=== PATIENT | female | born 1945 | race Caucasian/White ===

== ENCOUNTER 2016-06-19 11:18 | Inpatient (IN) | payer MEDICARE, OTHER ==
[2016-06-19] MEDS ORDERED: LORazepam 2 MG/ML SYRINGE IV STA ×2 (11:34→13:17)
--- NOTE | 2016-06-19 11:37 | ED ---
General Adult HPI - General Chief complaint: Shortness of Breath Stated complaint: high pulse Time Seen by Provider: 06/19/16 11:25 Source: patient, RN notes reviewed Mode of arrival: ambulatory Limitations: no limitations - History of Present Illness Initial comments: This is a 71-year-old female presents emergency Department with complaint of difficult to breathing. Patient states this is been ongoing for approximately for 5 days. Patient states she has a history of COPD. Patient states difficulty breathing is gotten worse. She went to see Dr. Chen today. Patient states he central here because her heart was racing. Patient states she has not had any recent fever chills or cough. Patient denies any chest pain. Patient does states she can tell her heart is racing. Patient denies any abdominal pain patient denies nausea vomiting or diarrhea. Patient denies any headache patient denies numbness weakness. Patient denies any dizziness lightheadedness or near syncopal episode. Patient denies any recent injury or trauma. Patient denies increased edema in her leg she states it's normal. - Related Data Home Medications Medication Instructions Recorded Confirmed ALPRAZolam [Alprazolam] 0.25 mg PO DAILY PRN 06/19/16 06/19/16 Citalopram Hydrobromide 40 mg PO DAILY 06/19/16 06/19/16 [Citalopram HBr] Esomeprazole Magnesium [NexIUM] 40 mg PO DAILY 06/19/16 06/19/16 HYDROcodone/APAP 10-325MG [Buckley 1 tab PO Q4HR PRN 06/19/16 06/19/16 10-325] glipiZIDE [Glucotrol] 5 mg PO AC-BID 06/19/16 06/19/16 Allergies Allergy/AdvReac Type Severity Reaction Status Date / Time No Known Allergies Allergy Verified 06/19/16 11:26 Review of Systems ROS Statement: Those systems with pertinent positive or pertinent negative responses have been documented in the HPI. ROS Other: All systems not noted in ROS Statement are negative. Past Medical History Past Medical History: Diabetes Mellitus History of Any Multi-Drug Resistant Organisms: None Reported Past Surgical History: Appendectomy, Section, Cholecystectomy, Joint Replacement Past Psychological History: Anxiety, Depression Smoking Status: Current every day smoker Past Alcohol Use History: None Reported Past Drug Use History: None Reported General Exam - General Exam Comments Initial Comments: GENERAL: Patient is well-developed and well-nourished. Patient is nontoxic and well- hydrated and is in mild distress. ENT: Neck is soft and supple. No significant lymphadenopathy is noted. Oropharynx is clear. Moist mucous membranes. Neck has full range of motion without eliciting any pain. EYES: The sclera were anicteric and conjunctiva were pink and moist. Extraocular movements were intact and pupils were equal round and reactive to light. Eyelids were unremarkable. PULMONARY: Patient has diffuse wheezing. CARDIOVASCULAR: Patient is tachycardic at about 150 beats a minute ABDOMEN: Soft and nontender with normal bowel sounds. No palpable organomegaly was noted. There is no palpable pulsatile mass. SKIN: Skin is clear with no lesions or rashes and otherwise unremarkable. NEUROLOGIC: Patient is alert and oriented x3. Cranial nerves II through XII are grossly intact. Motor and sensory are also intact. Normal speech, volume and content. Symmetrical smile. Cerebellar exam grossly intact. MUSCULOSKELETAL: Normal extremities with adequate strength and full range of motion. No lower extremity swelling or edema. No calf tenderness. LYMPHATICS: No significant lymphadenopathy is noted PSYCHIATRIC: Normal psychiatric evaluation. Normal interpersonal interactions appears functionally intact in deals appropriately with others. Moderate anxiety Limitations: no limitations Course Vital Signs 06/19/16 06/19/16 06/19/16 11:21 12:00 12:22 Temperature 97.8 F Pulse Rate 153 H 137 H Pulse Rate [ 150 H Open Cut Examiner ] Respiratory 22 22 Rate Blood Pressure 115/82 118/76 O2 Sat by Pulse 93 L 94 L Oximetry 06/19/16 06/19/16 13:10 14:00 Temperature Pulse Rate 146 H 143 H Pulse Rate [ Open Cut Examiner ] Respiratory 24 24 Rate Blood Pressure 124/67 111/60 O2 Sat by Pulse 96 91 L Oximetry Medical Decision Making - Medical Decision Making EKG shows atrial for ablation with rapid ventricular response at 152 bpm QRS is 82 QT interval is 262 QTC is 416. Patient's EKG shows no ST segment elevation or depression no T-wave abdomen is noted. Patient does not have a history of A. fib that we know of and I have an EKG from previous and it does not show A. fib. Patient refused a chest x-ray because her d-dimer was elevated and she still continued to have difficulty breathing I ordered a CAT scan of her chest to rule out PE. CT of the chest showed no PE but did show congestive heart failure. I gave the patient Lasix for congestive heart failure and continue the Cardizem running for the A. fib. I spoke with Dr. Escalera she agreed to admit the patient I consult the cardiology pulmonary and continue Lasix on the floor. - Lab Data Result diagrams: 06/19/16 11:48 06/19/16 11:48 Lab Results 06/19/16 06/19/16 06/19/16 Range/Units 11:34 11:48 11:48 WBC 9.4 (3.8-10.6) k/uL RBC 4.46 (3.80-5.40) m/uL Hgb 11.9 (11.4-16.0) gm/dL Hct 38.8 (34.0-46.0) % MCV 87.1 (80.0-100.0) fL MCH 26.7 (25.0-35.0) pg MCHC 30.7 L (31.0-37.0) g/dL RDW 16.0 H (11.5-15.5) % Plt Count 211 (150-450) k/uL Neutrophils % 74 % Lymphocytes % 16 % Monocytes % 6 % Eosinophils % 1 % Basophils % 1 % Neutrophils # 7.0 (1.3-7.7) k/uL Lymphocytes # 1.5 (1.0-4.8) k/uL Monocytes # 0.6 (0-1.0) k/uL Eosinophils # 0.1 (0-0.7) k/uL Basophils # 0.1 (0-0.2) k/uL Hypochromasia Moderate PT (9.0-12.0) sec INR (<1.1) APTT (22.0-30.0) sec D-Dimer (<0.60) mg/L FEU Sodium (137-145) mmol/L Potassium (3.5-5.1) mmol/L Chloride (98-107) mmol/L Carbon Dioxide (22-30) mmol/L Anion Gap mmol/L BUN (7-17) mg/dL Creatinine (0.52-1.04) mg/dL Est GFR (MDRD) Af Amer (>60 ml/min/1.73 sqM) Est GFR (MDRD) Non-Af (>60 ml/min/1.73 sqM) Glucose (74-99) mg/dL POC Glucose (mg/dL) (75-99) mg/dL POC Glu Delivery And Mail Sorter ID Calcium (8.4-10.2) mg/dL Magnesium (1.6-2.3) mg/dL Total Bilirubin (0.2-1.3) mg/dL AST (14-36) U/L ALT (9-52) U/L Alkaline Phosphatase (38-126) U/L Total Creatine Kinase 33 (30-135) U/L CK-MB (CK-2) 0.5 (0.0-2.4) ng/mL CK-MB (CK-2) Rel Index 1.5 Troponin I <0.012 (0.000-0.034) ng/mL NT-Pro-B Natriuret Pep 3600 pg/mL Total Protein (6.3-8.2) g/dL Albumin (3.5-5.0) g/dL 06/19/16 06/19/16 06/19/16 Range/Units 11:48 11:48 12:10 WBC (3.8-10.6) k/uL RBC (3.80-5.40) m/uL Hgb (11.4-16.0) gm/dL Hct (34.0-46.0) % MCV (80.0-100.0) fL MCH (25.0-35.0) pg MCHC (31.0-37.0) g/dL RDW (11.5-15.5) % Plt Count (150-450) k/uL Neutrophils % % Lymphocytes % % Monocytes % % Eosinophils % % Basophils % % Neutrophils # (1.3-7.7) k/uL Lymphocytes # (1.0-4.8) k/uL Monocytes # (0-1.0) k/uL Eosinophils # (0-0.7) k/uL Basophils # (0-0.2) k/uL Hypochromasia PT 11.2 (9.0-12.0) sec INR 1.1 (<1.1) APTT 22.4 (22.0-30.0) sec D-Dimer 1.40 H (<0.60) mg/L FEU Sodium 141 (137-145) mmol/L Potassium 4.6 (3.5-5.1) mmol/L Chloride 107 (98-107) mmol/L Carbon Dioxide 23 (22-30) mmol/L Anion Gap 11 mmol/L BUN 11 (7-17) mg/dL Creatinine 0.82 (0.52-1.04) mg/dL Est GFR (MDRD) Af Amer >60 (>60 ml/min/1.73 sqM) Est GFR (MDRD) Non-Af >60 (>60 ml/min/1.73 sqM) Glucose 88 (74-99) mg/dL POC Glucose (mg/dL) 101 H (75-99) mg/dL POC Glu Delivery And Mail Sorter ID Rin Proctor Calcium 8.8 (8.4-10.2) mg/dL Magnesium 2.2 (1.6-2.3) mg/dL Total Bilirubin 0.9 (0.2-1.3) mg/dL AST 22 (14-36) U/L ALT 21 (9-52) U/L Alkaline Phosphatase 72 (38-126) U/L Total Creatine Kinase (30-135) U/L CK-MB (CK-2) (0.0-2.4) ng/mL CK-MB (CK-2) Rel Index Troponin I (0.000-0.034) ng/mL NT-Pro-B Natriuret Pep pg/mL Total Protein 7.4 (6.3-8.2) g/dL Albumin 3.9 (3.5-5.0) g/dL Critical Care Time Critical Care Time: Yes Total Critical Care Time: 35 Disposition Clinical Impression: Acute pulmonary edema, Atrial fibrillation with RVR, COPD (chronic obstructive pulmonary disease) Disposition: ADMITTED IP TO THIS [facility] Time of Disposition: 14:34
[2016-06-19] MEDS ORDERED: DILTIAZEM 5 MG/ML 5 ML VIAL IVP STA ×3 (11:51→16:29)
[2016-06-19 12:06] LABS: Basophils # (A) 0.1 k/uL (0-0.2); Basophils % (A) 1 %; CH 26.6; CHCM 30.8; Eosinophils # (A) 0.1 k/uL (0-0.7); Eosinophils % (A) 1 %; HCT 38.8 % (34.0-46.0); HGB 11.9 gm/dL (11.4-16.0); Hypochromasia Moderate; Luc # (Auto) 0.14; Luc % (Auto) 2; Lymphocytes # (A) 1.5 k/uL (1.0-4.8); Lymphocytes % (A) 16 %; MCH 26.7 pg (25.0-35.0); MCHC 30.7 g/dL (31.0-37.0); MCV 87.1 fL (80.0-100.0); Mean Platelet Volume 7.8; Monocytes # (A) 0.6 k/uL (0-1.0); Monocytes % (A) 6 %; Neutrophils % (A) 74 %; RBC 4.46 m/uL (3.80-5.40); WBC 9.4 k/uL (3.8-10.6)
[2016-06-19 12:10] LABS: ALT 21 U/L (9-52); AST 22 U/L (14-36); Alkaline Phosphatase 72 U/L (38-126); Anion Gap 11 mmol/L; Blood Urea Nitrogen 11 mg/dL (7-17); Calcium 8.8 mg/dL (8.4-10.2); Carbon Dioxide 23 mmol/L (22-30); Chloride 107 mmol/L (98-107); Glucose 88 mg/dL (74-99); Magnesium 2.2 mg/dL (1.6-2.3); Non-African American GFR(MDRD) >60 (>60 ml/min/1.73 sqM); Potassium 4.6 mmol/L (3.5-5.1); Sodium 141 mmol/L (137-145); Total Bilirubin 0.9 mg/dL (0.2-1.3); Total Protein 7.4 g/dL (6.3-8.2)
[2016-06-19 12:12] LABS: Glucose,Whole Blood 101 mg/dL (75-99)
[2016-06-19] MEDS: DILTIAZEM 125 MG in SODIUM CHLORIDE 0.9% 100 ML IV ONE (12:12)
[2016-06-19 12:36] LABS: Creatine Kinase MB 0.5 ng/mL (0.0-2.4); Troponin I <0.012 ng/mL (0.000-0.034)
[2016-06-19 12:38] LABS: Creatine Kinase 33 U/L (30-135)
[2016-06-19 12:44] LABS: INR 1.1 (<1.1); Partial Thromboplastin Time 22.4 sec (22.0-30.0); Prothrombin Time 11.2 sec (9.0-12.0)
[2016-06-19] MEDS ORDERED: methylPREDNISolone SOD SUCCI 125 MG/2 ML VIAL IV STA (12:52)
[2016-06-19] MEDS ORDERED: RX INFO: IV CONTRAST WAS GIVEN 1 EACH MISC MISCELLANE PRN (13:12)
[2016-06-19] MEDS ORDERED: IPRATROPIUM-ALBUTEROL 3 ML NEB INHALATION STA ×2 (14:07→17:09)
--- NOTE | 2016-06-19 14:09 | CT ---
EXAMINATION TYPE: CT chest angio for PE DATE OF EXAM: 06/19/2016 2:04 PM COMPARISON: NONE HISTORY: Poor historian, shortness of breath, high pulse rate CT DLP: 554.50 mGycm CONTRAST: CT chest with contrast and 3D reconstruction with MIP imaging is performed with IV Contrast, patient injected with 100 mL of Omnipaque 350. Contrast-enhanced CT of the chest was performed through the course of the pulmonary arteries with bea g and mediastinal window settings submitted. 3D reconstruction with MIP imaging was also performed. PULMONARY ARTERIES: The pulmonary arteries and their major tributaries are patent. I do not see maxim dence for sizable filling defect to suggest pulmonary embolic process. LUNGS: There are scattered groundglass infiltrates with pulmonary venous congestion with small bilate ral pleural effusions. There is also cardiomegaly. Findings are felt to reflect congestive failure. MEDIASTINUM: Thoracic aorta is of normal caliber . Pericardial effusion with transverse measurement of 1.4 cm. No evidence for mediastinal mass. No mediastinal lymph nodes greater than 1cm. HILAR STRUCTURES: No evidence for mass. No hilar lymph nodes greater than 1 cm. UPPER ABDOMEN: Small hiatal hernia noted. IMPRESSION: 1. No evidence for Pulmonary embolism at this time. 2. Findings felt to reflect congestive failure.
[2016-06-19] MEDS ORDERED: FUROSEMIDE 10 MG/ML 2 ML VIAL IV STA (14:33)
[2016-06-19] MEDS ORDERED: HEPARIN SODIUM,PORCINE 5,000 UNIT/ML 1 ML VIAL IV ONE (14:35)
[2016-06-19] MEDS: HEPARIN SODIUM,PORCINE/D5W PMX 25,000 UNIT in DEXTROSE/WATER 1 500ML.BAG IV SCH (15:32)
--- NOTE | 2016-06-19 17:10 | ED ---
Medical Decision Making - Medical Decision Making The patient was still developing difficulty with breathing in spite of the initial updrafts and Lasix given. She desaturates quickly she will be placed on BiPAP and be given another DuoNeb treatment. - Lab Data Result diagrams: 06/19/16 11:48 06/19/16 11:48 Lab Results 06/19/16 06/19/16 06/19/16 Range/Units 11:34 11:48 11:48 WBC 9.4 (3.8-10.6) k/uL RBC 4.46 (3.80-5.40) m/uL Hgb 11.9 (11.4-16.0) gm/dL Hct 38.8 (34.0-46.0) % MCV 87.1 (80.0-100.0) fL MCH 26.7 (25.0-35.0) pg MCHC 30.7 L (31.0-37.0) g/dL RDW 16.0 H (11.5-15.5) % Plt Count 211 (150-450) k/uL Neutrophils % 74 % Lymphocytes % 16 % Monocytes % 6 % Eosinophils % 1 % Basophils % 1 % Neutrophils # 7.0 (1.3-7.7) k/uL Lymphocytes # 1.5 (1.0-4.8) k/uL Monocytes # 0.6 (0-1.0) k/uL Eosinophils # 0.1 (0-0.7) k/uL Basophils # 0.1 (0-0.2) k/uL Hypochromasia Moderate PT (9.0-12.0) sec INR (<1.1) APTT (22.0-30.0) sec D-Dimer (<0.60) mg/L FEU Sodium (137-145) mmol/L Potassium (3.5-5.1) mmol/L Chloride (98-107) mmol/L Carbon Dioxide (22-30) mmol/L Anion Gap mmol/L BUN (7-17) mg/dL Creatinine (0.52-1.04) mg/dL Est GFR (MDRD) Af Amer (>60 ml/min/1.73 sqM) Est GFR (MDRD) Non-Af (>60 ml/min/1.73 sqM) Glucose (74-99) mg/dL POC Glucose (mg/dL) (75-99) mg/dL POC Glu Critical Care Physician ID Calcium (8.4-10.2) mg/dL Magnesium (1.6-2.3) mg/dL Total Bilirubin (0.2-1.3) mg/dL AST (14-36) U/L ALT (9-52) U/L Alkaline Phosphatase (38-126) U/L Total Creatine Kinase 33 (30-135) U/L CK-MB (CK-2) 0.5 (0.0-2.4) ng/mL CK-MB (CK-2) Rel Index 1.5 Troponin I <0.012 (0.000-0.034) ng/mL NT-Pro-B Natriuret Pep 3600 pg/mL Total Protein (6.3-8.2) g/dL Albumin (3.5-5.0) g/dL 06/19/16 06/19/16 06/19/16 Range/Units 11:48 11:48 12:10 WBC (3.8-10.6) k/uL RBC (3.80-5.40) m/uL Hgb (11.4-16.0) gm/dL Hct (34.0-46.0) % MCV (80.0-100.0) fL MCH (25.0-35.0) pg MCHC (31.0-37.0) g/dL RDW (11.5-15.5) % Plt Count (150-450) k/uL Neutrophils % % Lymphocytes % % Monocytes % % Eosinophils % % Basophils % % Neutrophils # (1.3-7.7) k/uL Lymphocytes # (1.0-4.8) k/uL Monocytes # (0-1.0) k/uL Eosinophils # (0-0.7) k/uL Basophils # (0-0.2) k/uL Hypochromasia PT 11.2 (9.0-12.0) sec INR 1.1 (<1.1) APTT 22.4 (22.0-30.0) sec D-Dimer 1.40 H (<0.60) mg/L FEU Sodium 141 (137-145) mmol/L Potassium 4.6 (3.5-5.1) mmol/L Chloride 107 (98-107) mmol/L Carbon Dioxide 23 (22-30) mmol/L Anion Gap 11 mmol/L BUN 11 (7-17) mg/dL Creatinine 0.82 (0.52-1.04) mg/dL Est GFR (MDRD) Af Amer >60 (>60 ml/min/1.73 sqM) Est GFR (MDRD) Non-Af >60 (>60 ml/min/1.73 sqM) Glucose 88 (74-99) mg/dL POC Glucose (mg/dL) 101 H (75-99) mg/dL POC Glu Critical Care Physician ID Rin Proctor Calcium 8.8 (8.4-10.2) mg/dL Magnesium 2.2 (1.6-2.3) mg/dL Total Bilirubin 0.9 (0.2-1.3) mg/dL AST 22 (14-36) U/L ALT 21 (9-52) U/L Alkaline Phosphatase 72 (38-126) U/L Total Creatine Kinase (30-135) U/L CK-MB (CK-2) (0.0-2.4) ng/mL CK-MB (CK-2) Rel Index Troponin I (0.000-0.034) ng/mL NT-Pro-B Natriuret Pep pg/mL Total Protein 7.4 (6.3-8.2) g/dL Albumin 3.9 (3.5-5.0) g/dL Disposition Clinical Impression: Acute pulmonary edema, Atrial fibrillation with RVR, COPD (chronic obstructive pulmonary disease) Disposition: ADMITTED IP TO THIS HOSP
[2016-06-19] MEDS ORDERED: HYDROcodone/APAP 10-325MG 1 EACH TAB PO ONE (18:02)
[2016-06-19] MEDS: methylPREDNISolone SOD SUCCI 125 MG/2 ML VIAL IV SCH (18:27)
--- NOTE | 2016-06-19 18:45 | P.HPIM ---
History of Present Illness H&P Date: 06/19/16 Chief Complaint: Shortness of breath, wheezing This is a pleasant 71-year-old lady patient of Dr. Raphael and Dr. Chen. She has underlying history off CAD type 2 diabetes mellitus, hypertension, COPD, current heavy tobacco use, chronic rhonchi place, Bateman's esophagus admitted emergency room secondary to increasing difficulty despite initial treatments at home, she was sent in from Dr. Chen's office secondary to increasing shortness of breath and difficulty in breathing, patient has had problems for about one week, she has increasingly shortness of breath breathing fatigue , conversational dyspnea, palpitations and fast heartbeat. Patient denies any recent fever or chills, patient denies any lower extremity edema or leg pain, patient denies any syncopal event or focal neurologic deficits. Patient denies any falls or recent trauma In the emergency room she was found to be in atrial fibrillation new onset, rapid ventricular rate, heart rate in the 140s, she was very bronchospastic and hypoxemic, she required nebulized treatments without relief, they have started BiPAP treatments and was transferred to ICU. O2 sats at 80%, CTA of the chest was done as a d-dimer was elevated, CT ruled out pulmonary emboli it did show congestive heart failure, additional findings on CAT scan showed scattered groundglass infiltrates with small bilateral pleural effusion she was started on IV Cardizem for atrial fibrillation with IV anticoagulation and IV Lasix. Consult was made with cardiology and Dr. Chen pulmonary medicine and boot turner. Review of Systems Constitutional: Reports as per HPI, Reports daytime sleepiness, Reports fatigue , Reports lethargy, Reports poor appetite, Denies anorexia, Denies chills, Denies chronic headaches, Denies chronic pain, Denies fever, Denies malaise, Denies night sweats, Denies sweats, Denies weakness, Denies weight gain, Denies weight loss Ears, nose, mouth and throat: Reports as per HPI, Denies ant. neck pain, Denies bleeding gums, Denies dental pain, Denies dysphagia, Denies epistaxis, Denies headache, Denies hoarseness, Denies mouth pain, Denies nasal congestion, Denies nasal discharge, Denies neck fullness/pressure, Denies neck lump, Denies nose pain, Denies odynophagia, Denies post-nasal drip, Denies sinus pain, Denies sinus pressure, Denies swelling in mouth, Denies swelling in throat, Denies sore throat, Denies vertigo, Denies voice changes Cardiovascular: Reports as per HPI, Reports decreased exercise tolerance, Reports dyspnea on exertion, Reports edema, Reports irregular heart beat, Reports lightheadedness, Reports paroxysmal nocturnal dyspnea, Reports rapid heart beat, Reports shortness of breath, Denies chest pain, Denies claudication , Denies high blood pressure, Denies leg edema, Denies orthopnea, Denies palpitations, Denies phlebitis, Denies syncope Respiratory: Reports as per HPI, Reports cough, Reports cough with sputum, Reports respiratory infections, Reports wheezing, Denies congestion, Denies dyspnea, Denies excessive sputum, Denies hemoptysis, Denies home oxygen, Denies pain, Denies pain on inspiration, Denies pleurisy, Denies sleep apnea, Denies snoring Gastrointestinal: Reports as per HPI, Denies abdominal pain, Denies belching, Denies bloating, Denies BRBPR, Denies change in bowel habits, Denies coffee ground emesis, Denies constipation, Denies diarrhea, Denies dyspepsia, Denies early satiety, Denies excessive gas, Denies heartburn, Denies hematemesis, Denies hematochezia, Denies indigestion, Denies jaundice, Denies lactose intolerance, Denies loss of appetite, Denies melena, Denies nausea, Denies vomiting Genitourinary: Reports as per HPI, Denies abnormal vaginal bleeding, Denies decreased libido, Denies difficulty conceiving, Denies difficulty voiding, Denies dysmenorrhea, Denies dyspareunia, Denies dysuria, Denies flank pain, Denies genital sores, Denies hematuria, Denies hot flashes, Denies incomplete emptying, Denies kidney stones, Denies menorrhagia, Denies mixed incontinence, Denies nocturia, Denies pelvic pain, Denies post void dribbling, Denies , Denies prolapse symptoms, Denies stress incontinence, Denies urge incontinence , Denies urgency, Denies urinary frequency, Denies vaginal discharge, Denies vaginal dryness, Denies vaginal itching, Denies vaginal odor Menstruation: Reports as per HPI, Reports postmenopausal, Denies amenorrhea, Denies amenorrhea on BC, Denies currently menstrual, Denies cycle < 21 days, Denies cycle > 35 days, Denies cycle variable, Denies menses 1-7 days, Denies menses 8 or > days, Denies menses variable, Denies period heavy, Denies period light, Denies period normal, Denies period spotting, Denies post hysterectomy, Denies premenarcheal Musculoskeletal: Reports as per HPI Integumentary: Reports as per HPI, Denies acne, Denies boils, Denies brittle nails, Denies change in hair/nails, Denies color changes, Denies darkening of skin, Denies depigmentation, Denies dryness, Denies foot/leg ulcers, Denies growths, Denies hirsutism, Denies lesions, Denies onychomycosis, Denies pruritus , Denies rash, Denies sores, Denies striae, Denies unusual bruising, Denies wounds Neurological: Reports as per HPI, Reports change in mentation, Reports hearing difficulties, Reports weakness, Denies aphasia, Denies ataxia, Denies balance difficulties, Denies burning pain, Denies change in smell/taste, Denies change in speech, Denies confusion, Denies convulsions, Denies double vision, Denies gait dysfunction, Denies head injury, Denies headaches, Denies lack of coordination, Denies loss of vision, Denies memory loss, Denies migraines, Denies motor disturbance, Denies numbness, Denies paralysis, Denies paresthesias , Denies seizures, Denies sensory deficit, Denies spasticity, Denies syncope, Denies tic, Denies tingling, Denies transient paralysis, Denies tremors, Denies vertigo, Denies visual changes Psychiatric: Reports as per HPI, Denies anhedonia, Denies anxiety, Denies anxiety attacks, Denies change in appetite, Denies change in libido, Denies change in sleep habits, Denies confusion, Denies depression, Denies difficulty concentrating, Denies disorientation, Denies hallucinations, Denies hopelessness , Denies hypersomnia, Denies insomnia, Denies irritability, Denies memory loss, Denies mood swings, Denies paranoia, Denies sadness/tearfulness, Denies sleep disturbances, Denies suicidal ideation Endocrine: Reports as per HPI, Denies cold intolerance, Denies deepening of the voice, Denies excessive sweating, Denies excessive thirst, Denies fatigue, Denies flushing, Denies heat intolerance, Denies high blood sugars, Denies increase in ring/shoe/hat size, Denies low blood sugars, Denies nocturia, Denies palpitations, Denies polydipsia, Denies polyphagia, Denies polyuria, Denies proptosis, Denies recent glucocorticoid use, Denies thyroid mass, Denies weight change Hematologic/Lymphatic: Reports as per HPI, Denies easy bleeding, Denies easy bruising, Denies lymphadenopathy, Denies lymphedema, Denies thrombophilia Allergic/Immunologic: Reports as per HPI, Denies allergic rhinitis, Denies anaphylaxis, Denies angioedema, Denies gluten intolerance, Denies persistent infections, Denies seasonal allergies, Denies urticaria, Denies wheezing Past Medical History Past Medical History: COPD, Diabetes Mellitus, Osteoarthritis (OA) Additional Past Medical History / Comment(s): NIDDM type II, back pain, migraines, severe bilateral knee pain, hiatal hernia, bateman's esophagus, sinus problems, bilateral tinnitis-resolved. Restless leg syndrome carotid stenosis osteoporosis closely fracture hypertension menopause History of Any Multi-Drug Resistant Organisms: None Reported Past Surgical History: Adenoidectomy, Appendectomy, Section, Cholecystectomy, Joint Replacement, Tonsillectomy Additional Past Surgical History / Comment(s): Total bilateral knee arthroplasty , EGD/colonoscopy, D&C, bronchoscopy. appendectomy Past Anesthesia/Blood Transfusion Reactions: No Reported Reaction Past Psychological History: Anxiety, Depression Additional Psychological History / Comment(s): Pt resides with her [employer]. She uses a cane at times. She no longer drives-family takes her to [employer]. She has a nebulizer and glucose monitor. Smoking Status: Current every day smoker Past Alcohol Use History: None Reported Additional Past Alcohol Use History / Comment(s): Pt startes smoking at the age of 10 yrs. Past Drug Use History: None Reported - Past Family History Father Family Medical History: Unable to Obtain Additional Family Medical History / Comment(s): Uncertain but thinks he had a OK Mother Family Medical History: Cancer (Lung) Additional Family Medical History / Comment(s): Mother had lung cancer. She was a smoker. Brother(s) Family Medical History: Unable to Obtain (No brothers) Sister(s) Family Medical History: No Reported History (Healthy 1 sister) Daughter(s) Family Medical History: Seizure Disorder Medications and Allergies Home Medications Medication Instructions Recorded Confirmed Type ALPRAZolam [Alprazolam] 0.25 mg PO DAILY PRN 06/19/16 06/19/16 History Citalopram Hydrobromide 40 mg PO DAILY 06/19/16 06/19/16 History [Citalopram HBr] Esomeprazole Magnesium [NexIUM] 40 mg PO DAILY 06/19/16 06/19/16 History HYDROcodone/APAP 10-325MG [Warner 1 tab PO Q4HR PRN 06/19/16 06/19/16 History 10-325] glipiZIDE [Glucotrol] 5 mg PO AC-BID 06/19/16 06/19/16 History Allergies Allergy/AdvReac Type Severity Reaction Status Date / Time No Known Allergies Allergy Verified 06/19/16 11:26 Physical Exam Vitals: Vital Signs Pulse Resp BP Pulse Ox 06/19/16 17:32 135 H 06/19/16 17:22 135 H 06/19/16 17:00 130 H 24 127/88 88 L 06/19/16 16:28 143 H 24 134/91 92 L 06/19/16 15:00 136 H 24 140/63 90 L 06/19/16 14:40 149 H Intake and Output 06/19/16 06/19/16 06/19/16 06:59 14:59 22:59 Intake Total 26.5 Output Total 1450 Balance -1423.5 Intake: Intake, IV Titration 26.5 Amount Diltiazem 125 mg In 26.5 Sodium Chloride 0.9% 100 ml @ 7.5 MG/HR 7.5 mls/hr IV .[id number] ONE Rx#: [id number] Output: Urine 1450 - Constitutional General appearance: cooperative, mild distress, no acute distress, obese - EENT Eyes: anicteric sclerae, EOMI, PERRLA, dentition normal, normal appearance ENT: hard of hearing, NA/AT, normal oropharynx - Neck Neck: normal ROM - Respiratory Respiratory: bilateral: diminished, wheezing, prolonged expiration - Cardiovascular Rhythm: irregularly irregular (Tachycardic heart rate 130s) Heart sounds: normal: S1, S2 Abnormal Heart Sounds: systolic murmur, no diastolic murmur, no rub, no S3 Gallop, no S4 Gallop, no click, no other - Gastrointestinal General gastrointestinal: normal bowel sounds, soft - Integumentary Integumentary: normal, normal turgor - Neurologic Neurologic: CNII-XII intact - Musculoskeletal Musculoskeletal: gait normal, strength equal bilaterally - Psychiatric Psychiatric: A&O x's 3 (Obtunded and lethargic unable to obtain orientation), appropriate affect Results CBC & Chem 7: 06/19/16 11:48 06/19/16 11:48 Labs: Laboratory Results WBC 9.4 k/uL (3.8-10.6) 06/19/16 11:48 RBC 4.46 m/uL (3.80-5.40) 06/19/16 11:48 Hgb 11.9 gm/dL (11.4-16.0) 06/19/16 11:48 Hct 38.8 % (34.0-46.0) 06/19/16 11:48 MCV 87.1 fL (80.0-100.0) 06/19/16 11:48 MCH 26.7 pg (25.0-35.0) 06/19/16 11:48 MCHC 30.7 g/dL (31.0-37.0) L 06/19/16 11:48 RDW 16.0 % (11.5-15.5) H 06/19/16 11:48 Plt Count 211 k/uL (150-450) 06/19/16 11:48 Neutrophils % 74 % 06/19/16 11:48 Lymphocytes % 16 % 06/19/16 11:48 Monocytes % 6 % 06/19/16 11:48 Eosinophils % 1 % 06/19/16 11:48 Basophils % 1 % 06/19/16 11:48 Neutrophils # 7.0 k/uL (1.3-7.7) 06/19/16 11:48 Lymphocytes # 1.5 k/uL (1.0-4.8) 06/19/16 11:48 Monocytes # 0.6 k/uL (0-1.0) 06/19/16 11:48 Eosinophils # 0.1 k/uL (0-0.7) 06/19/16 11:48 Basophils # 0.1 k/uL (0-0.2) 06/19/16 11:48 Hypochromasia Moderate 06/19/16 11:48 PT 11.2 sec (9.0-12.0) 06/19/16 11:48 INR 1.1 (<1.1) 06/19/16 11:48 APTT 22.4 sec (22.0-30.0) 06/19/16 11:48 D-Dimer 1.40 mg/L FEU (<0.60) H 06/19/16 11:48 Sodium 141 mmol/L (137-145) 06/19/16 11:48 Potassium 4.6 mmol/L (3.5-5.1) 06/19/16 11:48 Chloride 107 mmol/L (98-107) 06/19/16 11:48 Carbon Dioxide 23 mmol/L (22-30) 06/19/16 11:48 Anion Gap 11 mmol/L 06/19/16 11:48 BUN 11 mg/dL (7-17) 06/19/16 11:48 Creatinine 0.82 mg/dL (0.52-1.04) 06/19/16 11:48 Est GFR (MDRD) Af Amer >60 (>60 ml/min/1.73 sqM) 06/19/16 11:48 Est GFR (MDRD) Non-Af >60 (>60 ml/min/1.73 sqM) 06/19/16 11:48 Glucose 88 mg/dL (74-99) 06/19/16 11:48 POC Glucose (mg/dL) 101 mg/dL (75-99) H 06/19/16 12:10 POC Glu [employer] Rin Potts 06/19/16 12:10 Calcium 8.8 mg/dL (8.4-10.2) 06/19/16 11:48 Magnesium 2.2 mg/dL (1.6-2.3) 06/19/16 11:48 Total Bilirubin 0.9 mg/dL (0.2-1.3) 06/19/16 11:48 AST 22 U/L (14-36) 06/19/16 11:48 ALT 21 U/L (9-52) 06/19/16 11:48 Alkaline Phosphatase 72 U/L (38-126) 06/19/16 11:48 Total Creatine Kinase 33 U/L (30-135) 06/19/16 11:48 CK-MB (CK-2) 0.5 ng/mL (0.0-2.4) 06/19/16 11:48 CK-MB (CK-2) Rel Index 1.5 06/19/16 11:48 Troponin I <0.012 ng/mL (0.000-0.034) 06/19/16 11:48 NT-Pro-B Natriuret Pep 3600 pg/mL 06/19/16 11:34 Total Protein 7.4 g/dL (6.3-8.2) 06/19/16 11:48 Albumin 3.9 g/dL (3.5-5.0) 06/19/16 11:48 Thrombosis Risk Factor Assmnt - DVT/VTE Prophylaxis DVT/VTE Prophylaxis: Pharmacologic Prophylaxis ordered, Mechanical Prophylaxis ordered - Choose All That Apply Any of the Below Risk Factors Present?: Yes Each Factor Represents 1 point: Abnormal pulmonary function (COPD), Heart failure (<1month), Obesity (BMI >25) Other Risk Factors: Yes Each Risk Factor Represents 2 Points: Age 61-74 years Other congenital or acquired thrombophilia - If yes, enter type in comment: No Thrombosis Risk Factor Assessment Total Risk Factor Score: 5 Thrombosis Risk Factor Assessment Level: High Risk Assessment and Plan Plan: 1. Acute respiratory failure with hypoxemic respiratory failure accompanied by acute diastolic CHF from atrial fibrillation new onset, pulmonary edema and severe COPD exacerbation, patient would be seen in ICU secondary to severe hypoxemia, she would be seen by boot turner Dr. Chen, along with cardiology , patient is currently on IV Lasix 20 mg every 8 hours IV Cardizem, and nebulized albuterol Atrovent and Pulmicort IV Solu-Medrol 2. Acute diastolic CHF secondary to atrial fibrillation, echocardiogram will be obtained to evaluate systolic function, IV diuresing using Lasix 20 mg daily 8 hours, patient would need an GUILLAUME inhibitor or an ARB once stabilized 3. Metabolic encephalopathy secondary to hypoxemic respiratory failure, need to rule out sepsis with SIRS, urinalysis will obtained, chest x-ray and CTA failed to reveal any pneumonic infiltrates 2. New onset atrial fibrillation, patient would have a thyroid function test echocardiogram cardiac troponins and an echocardiogram patient would be evaluated to include cardiac ischemia cardiology will be following her closely patient is currently receiving IV Cardizem and IV heparin this will be transitioned to an oral long-term anticoagulation once stable, chads 2 vasc score of 3 3. Diabetes mellitus type 2 with hyperglycemia, she is expected to be hyperglycemic on as she is on Solu-Medrol, patient will be started on NPH 10 units twice a day with NovoLog coverage, Glucotrol currently is on hold 5 mg twice a day while patient is still obtunded and lethargic 4. GERD on maintenance omeprazole 40 mg daily 5. Anxiety depression on citalopram 40 mg daily 6 chronic ostial arthritis pain on Warner 10 every 6 hours when necessary to be held at this time secondary to repair gene obtundation 7 chronic tobacco use patient is in agreement with nicotine patches to be provided she smokes 2 packs per day nicotine patch at 21 mics 8 Prognosis guarded, CODE STATUS full, DVT prophylaxis with IV heparin secondary to atrial fibrillatiom, GI prophylaxis on maintenance omeprazole Expected length of stay 3 nights
[2016-06-19] MEDS ORDERED: ALPRAZolam 0.25 MG TAB PO PRN (18:47)
[2016-06-19 19:38] LABS: Glucose,Whole Blood 229 mg/dL (75-99)
[2016-06-19 20:10] LABS: Hemoglobin A1C 6.4 % (4.2-6.1)
[2016-06-19] MEDS ORDERED: Magnesium Replacement Protocol 1 EACH MISC MISCELLANE PRN (21:16)
[2016-06-19] MEDS ORDERED: NALOXONE 0.4 MG/ML 1 ML VIAL IV PRN (21:16)
[2016-06-19] MEDS ORDERED: Phosphorus Replacement Protoco 1 EACH MISC MISCELLANE PRN (21:16)
[2016-06-19] MEDS ORDERED: Potassium Replacement Protocol 1 EACH MISC MISCELLANE PRN (21:16)
[2016-06-19] MEDS ORDERED: SODIUM CHLORIDE 0.9% 1,000 ML IV SCH (21:30)
--- NOTE | 2016-06-19 21:45 | XR ---
EXAMINATION TYPE: XR chest 1V portable DATE OF EXAM: 06/19/2016 6:34 PM COMPARISON: September 25, 2010 HISTORY: Dyspnea TECHNIQUE: Single frontal view of the chest is obtained. FINDINGS: The cardiac silhouette is moderately enlarged and is globular, suggesting the possibility of pericardial effusion. The cardiac silhouette appears greater than that on the prior study. There is a diffuse pattern of fine reticulation throughout the lung parenchyma symmetrically which si lhouettes the pulmonary vasculature. The finding suggests mild/moderate interstitial phase pulmonary edema, presumably cardiogenic etiology. There are no focal lung opacities. The pleural spaces are negative. The bones and soft tissues are unremarkable. IMPRESSION: 1. MILD/MODERATE INTERSTITIAL PHASE PULMONARY EDEMA, PRESUMABLY CARDIOGENIC ETIOLOGY. 2. MODERATELY ENLARGED GLOBULAR CARDIAC SILHOUETTE, SUGGESTS PERICARDIAL EFFUSION NEW SINCE THE PRIOR STUDY OF 2010.
[2016-06-19] MEDS: NICOTINE 21MG/24HR PATCH TRANSDERM SCH (22:02)
[2016-06-19] MEDS: CITALOPRAM HYDROBROMIDE 20 MG TAB PO SCH (22:02)
[2016-06-19] MEDS: INSULIN NPH 300 UNIT/3 ML VIAL SQ SCH (22:02)
[2016-06-20] MEDS ORDERED: FUROSEMIDE 10 MG/ML 2 ML VIAL IV SCH
[2016-06-20] MEDS: FUROSEMIDE 10 MG/ML 4 ML VIAL IV SCH ×3 (00:43→14:41)
[2016-06-20] MEDS ORDERED: HEPARIN SODIUM,PORCINE 5,000 UNIT/ML 1 ML VIAL IV PRN (00:45)
[2016-06-20] MEDS: DILTIAZEM 125 MG in SODIUM CHLORIDE 0.9% 100 ML IV ONE (00:50)
[2016-06-20] MEDS: methylPREDNISolone SOD SUCCI 125 MG/2 ML VIAL IV SCH ×4 (01:48→18:25)
[2016-06-20] MEDS: ACETAMINOPHEN IV (For NPO) 1,000 MG in EMPTY BAG 1 BAG IVPB PRN ×2 (05:04→11:58)
--- NOTE | 2016-06-20 07:15 | XR ---
EXAMINATION TYPE: XR chest 1V portable DATE OF EXAM: 06/20/2016 6:46 AM Comparison: 06/19/2016 Clinical History: 71-year-old female with CHF, shortness of breath Findings: Heart remains moderately enlarged. Diffuse interstitial opacities persist but there is new bibasilar patchy opacity, right greater than left. Impression: 1. Moderate cardiomegaly persists, likely combination of cardiac enlargement and pericardial effusion . 2. Continued CHF with interstitial pulmonary edema. There may be interval worsening given more conflu ent edema/consolidation now at the right base.
[2016-06-20 07:40] LABS: Basophils % (A) 0 %; CH 26.8; CHCM 30.7; Eosinophils % (A) 0 %; HCT 37.6 % (34.0-46.0); HDW 3.07; HGB 11.4 gm/dL (11.4-16.0); Hypochromasia Moderate; Luc # (Auto) 0.02; Luc % (Auto) 0; Lymphocytes # (A) 0.8 k/uL (1.0-4.8); Lymphocytes % (A) 13 %; MCH 26.8 pg (25.0-35.0); MCHC 30.4 g/dL (31.0-37.0); Mean Platelet Volume 7.5; Monocytes # (A) 0.1 k/uL (0-1.0); Monocytes % (A) 2 %; Neutrophils # (A) 5.7 k/uL (1.3-7.7); Neutrophils % (A) 84 %; RBC 4.27 m/uL (3.80-5.40); RDW 15.8 % (11.5-15.5); WBC 6.7 k/uL (3.8-10.6)
[2016-06-20] MEDS: LEVALBUTEROL NEB 1.25 MG/3 ML AMP INHALATION PRN ×2 (08:20→13:29)
[2016-06-20 08:46] LABS: Glucose,Whole Blood 166 mg/dL (75-99)
[2016-06-20 09:09] LABS: ALT 26 U/L (9-52); AST 20 U/L (14-36); Alkaline Phosphatase 59 U/L (38-126); Anion Gap 12 mmol/L; Blood Urea Nitrogen 16 mg/dL (7-17); Calcium 9.2 mg/dL (8.4-10.2); Carbon Dioxide 24 mmol/L (22-30); Chloride 104 mmol/L (98-107); Glucose 174 mg/dL (74-99); Magnesium 2.4 mg/dL (1.6-2.3); Non-African American GFR(MDRD) >60 (>60 ml/min/1.73 sqM); Phosphorous 4.3 mg/dL (2.5-4.5); Potassium 4.4 mmol/L (3.5-5.1); Sodium 140 mmol/L (137-145); Total Bilirubin 0.8 mg/dL (0.2-1.3); Total Protein 6.9 g/dL (6.3-8.2)
[2016-06-20] MEDS ORDERED: VERAPAMIL 40 MG TAB PO SCH (09:30)
[2016-06-20] MEDS: glipiZIDE 5 MG TAB PO SCH ×2 (09:45→18:25)
[2016-06-20] MEDS: NICOTINE 21MG/24HR PATCH TRANSDERM SCH (09:45)
[2016-06-20] MEDS: CITALOPRAM HYDROBROMIDE 20 MG TAB PO SCH (09:46)
[2016-06-20] MEDS: PANTOPRAZOLE 40 MG TABLET PO SCH (09:46)
--- NOTE | 2016-06-20 10:08 | ECHOF ---
Referral Reason:chf MEASUREMENTS -------- HEIGHT: 180.3 cm WEIGHT: 81.6 kg BP: 90/52 RVIDd: 3.2 cm (< 3.3) IVSd: 1.2 cm (0.6 - 1.1) LVIDd: 4.6 cm (3.9 - 5.3) LVPWd: 1.4 cm (0.6 - 1.1) IVSs: 1.7 cm LVIDs: 3.9 cm LVPWs: 1.7 cm LAESV Index (A-L): 58.66 ml/m Ao Diam: 2.7 cm (2.0 - 3.7) AV Cusp: 0.9 cm (1.5 - 2.6) LA Diam: 5.1 cm (2.7 - 3.8) MV EXCURSION: 8.655 mm (> 18.000) MV EF SLOPE: 89 mm/s (70 - 150) EPSS: 2.4 cm MV E Apolinar: 1.40 m/s MV DecT: 226 ms MV A Apolinar: 0.41 m/s MV E/A Ratio: 3.44 AV maxP.69 mmHg AV meanP.02 mmHg RAP: 5.00 mmHg RVSP: 38.43 mmHg FINDINGS -------- Atrial fibrillation. This was a technically difficult study with suboptimal views. There is mild concentric left ventricular hypertrophy. Overall left ventricular systolic function is low-normal with, an EF between 50 - 55 %. The right ventricle is mildly enlarged. LA is severely dilated >40 ml/m2 The right atrium was not well visualized. 1.5mg of Definity was utilized for enhancement of images Aortic valve is trileaflet and is mildly thickened. There is mild aortic stenosis present. Peak/mean gradient across the Aortic Valve is 18.69mmHg / 8.02mmHg. The mitral valve leaflets are mildly thickened. Mild mitral regurgitation is present. Mild tricuspid regurgitation present. There is mild pulmonary hypertension. The right ventricular systolic pressure, as measured by Doppler, is 38.43mmHg. Pulmonic valve appears structurally normal. The aortic root size is normal. The pericardium is normal. CONCLUSIONS -------- 1. Atrial fibrillation. 2. There is mild aortic stenosis present. 3. Peak/mean gradient across the Aortic Valve is 18.69mmHg / 8.02mmHg. 4. The mitral valve leaflets are mildly thickened. 5. Mild mitral regurgitation is present. 6. Mild tricuspid regurgitation present. 7. There is mild pulmonary hypertension. 8. The right ventricular systolic pressure, as measured by Doppler, is 38.43mmHg. 9. Pulmonic valve appears structurally normal. 10. The aortic root size is normal. 11. The pericardium is normal. 12. This was a technically difficult study with suboptimal views. 13. There is mild concentric left ventricular hypertrophy. 14. Overall left ventricular systolic function is low-normal with, an EF between 50 - 55 %. 15. The right ventricle is mildly enlarged. 16. LA is severely dilated >40 ml/m2 17. The right atrium was not well visualized. 18. 1.5mg of Definity was utilized for enhancement of images 19. Aortic valve is trileaflet and is mildly thickened. NETWORK INTELLIGENCE ANALYST: Patricia Cho RDCS
[2016-06-20] MEDS: METOPROLOL TARTRATE 25 MG TAB PO SCH ×3 (10:16→21:15)
[2016-06-20] MEDS: INSULIN NPH 300 UNIT/3 ML VIAL SQ SCH (10:24)
[2016-06-20] MEDS: INSULIN LISPRO (humaLOG) 300 UNIT/3 ML VIAL SQ SCH ×3 (10:25→18:35)
--- NOTE | 2016-06-20 11:04 | P.CNPUL ---
History of Present Illness Consult date: 06/20/16 Requesting physician: Coby Escalera Reason for consult: other (Acute respiratory failure, acute pulmonary edema) Chief complaint: Shortness of breath and wheezing History of present illness: This is a 71-year-old female with history of multiple medical problems including coronary artery disease, type 2 diabetes, COPD, heavy smoker, history of Bateman esophagus, patient was initially seen by Dr. Chen with increased shortness of breath, and difficulty breathing. Her symptoms have been going on for about a week. She was also complaining of fatigue, conversational dyspnea, and palpitations. In the ER, patient was found to be in pulmonary edema, she was also noted to be in atrial fibrillation with RVR, and this is supposedly new onset A. fib. Heart rate was in the 140 range, patient was noted to be bronchospastic, she was given diuretics in the ER, and she was placed on BiPAP. CT of the chest showed evidence of pulmonary edema, groundglass infiltrates were noted bilaterally and bilateral pleural effusions. There was also evidence of pericardial effusion, transverse measurement of 1.4 cm, and some nonspecific mediastinal adenopathy noted. And not felt to be clinical seek significant. At any rate patient was placed on BiPAP, transferred to the ICU, placed on diuretics, bronchodilators, steroids, and I was asked to see her on consultation. Review of Systems 14 point review of systems were obtained, please refer to pertinent positives and negatives in HPI. Past Medical History Past Medical History: COPD, Diabetes Mellitus, Osteoarthritis (OA) Additional Past Medical History / Comment(s): NIDDM type II, back pain, migraines, severe bilateral knee pain, hiatal hernia, bateman's esophagus, sinus problems, bilateral tinnitis-resolved. Restless leg syndrome carotid stenosis osteoporosis closely fracture hypertension menopause History of Any Multi-Drug Resistant Organisms: None Reported Past Surgical History: Adenoidectomy, Appendectomy, Section, Cholecystectomy, Joint Replacement, Tonsillectomy Additional Past Surgical History / Comment(s): Total bilateral knee arthroplasty , EGD/colonoscopy, D&C, bronchoscopy. appendectomy Past Anesthesia/Blood Transfusion Reactions: No Reported Reaction Past Psychological History: Anxiety, Depression Additional Psychological History / Comment(s): Pt resides with her [employer]. She uses a cane at times. She no longer drives-family takes her to [employer]. She has a nebulizer and glucose monitor. Smoking Status: Current every day smoker Past Alcohol Use History: None Reported Additional Past Alcohol Use History / Comment(s): Pt startes smoking at the age of 10 yrs. Past Drug Use History: None Reported - Past Family History Father Family Medical History: Unable to Obtain Additional Family Medical History / Comment(s): Uncertain but thinks he had a [place] Mother Family Medical History: Cancer (Lung) Additional Family Medical History / Comment(s): Mother had lung cancer. She was a smoker. Brother(s) Family Medical History: Unable to Obtain (No brothers) Sister(s) Family Medical History: No Reported History (Healthy 1 sister) Daughter(s) Family Medical History: Seizure Disorder Medications and Allergies Home Medications Medication Instructions Recorded Confirmed Type ALPRAZolam [Alprazolam] 0.25 mg PO DAILY PRN 06/19/16 06/19/16 History Citalopram Hydrobromide 40 mg PO DAILY 06/19/16 06/19/16 History [Citalopram HBr] Esomeprazole Magnesium [NexIUM] 40 mg PO DAILY 06/19/16 06/19/16 History HYDROcodone/APAP 10-325MG [[place] 1 tab PO Q4HR PRN 06/19/16 06/19/16 History 10-325] glipiZIDE [Glucotrol] 5 mg PO AC-BID 06/19/16 06/19/16 History Allergies Allergy/AdvReac Type Severity Reaction Status Date / Time No Known Allergies Allergy Verified 06/19/16 11:26 Physical Exam Vitals: Vital Signs Temp Pulse Pulse Resp BP BP Pulse Ox 06/20/16 08:33 115 H 06/20/16 08:20 121 H 06/20/16 07:00 114 H 18 93/59 06/20/16 06:00 112 H 16 82/61 06/20/16 05:00 108 H 18 93/70 06/20/16 04:00 98.1 F 108 H 17 89/59 06/20/16 03:00 116 H 17 90/57 06/20/16 02:00 120 H 15 92/64 06/20/16 01:00 120 H 17 90/62 06/20/16 00:00 97.3 F L 120 H 13 85/65 06/19/16 23:00 118 H 15 92/64 06/19/16 22:00 120 H 13 90/61 06/19/16 21:00 128 H 16 94/55 06/19/16 20:00 98.4 F 130 H 18 99/64 06/19/16 18:50 133 H 24 97/74 98 06/19/16 18:00 136 H 24 107/74 98 06/19/16 17:32 135 H 06/19/16 17:22 135 H 06/19/16 17:00 130 H 24 127/88 88 L 06/19/16 16:28 143 H 24 134/91 92 L 06/19/16 15:00 136 H 24 140/63 90 L 06/19/16 14:40 149 H Intake and Output 06/19/16 06/20/16 06/20/16 22:59 06:59 14:59 Intake Total 86.5 523.888 80 Output Total 2350 1435 260 Balance -2263.5 -911.112 -180 Intake: Intake, IV Titration 86.5 523.888 80 Amount ACETAMINOPHEN IV (For NPO 100 ) 1,000 mg In Empty Bag 1 bag @ 400 mls/hr IVPB Q6HR PRN Rx#:[id number] Diltiazem 125 mg In 26.5 83.333 Sodium Chloride 0.9% 100 ml @ 7.5 MG/HR 7.5 mls/hr IV .[id number] ONE Rx#: [id number] Heparin Sodium,Porcine/ 180.555 D5w Pmx 25,000 unit In Dextrose/Water 1 500ml. bag @ 12 UNITS/KG/HR 19. 59 mls/hr IV .Q24H [facility] Rx #:[id number] Sodium Chloride 0.9% 1, 60 160 80 000 ml @ 20 mls/hr IV . Q24H [facility] Rx#:[id number] Output: Urine 2350 1435 260 Other: Voiding Method Indwelling Catheter Indwelling Catheter Weight 90.4 kg Physical Exam: Revealed a 71-year-old female in moderate respiratory distress, presently on BiPAP. HEENT:[Neck is supple.] [No neck masses.] [No thyromegaly.] [No JVD.] Chest: [Crackles and rhonchi and wheezes noted bilaterally.] Cardiac Exam: [Irregular irregular rhythm Normal S1 and S2, no S3 gallop, 2/6 systolic murmur throughout the precordium] Abdomen: [Soft, nontender, no megaly, no rebound, no guarding, normal bowel sounds.] Extremities: [No clubbing, trace of bipedal edema, no cyanosis.] Neurological Exam: [No focal neurologic deficit.] Results - Laboratory Findings CBC and BMP: 06/20/16 07:05 06/20/16 07:05 PT/INR, D-dimer PT 11.2 sec (9.0-12.0) 06/19/16 11:48 INR 1.1 (<1.1) 06/19/16 11:48 D-Dimer 1.40 mg/L FEU (<0.60) H 06/19/16 11:48 Abnormal lab findings: Abnormal Labs 06/19/16 06/19/16 06/20/16 19:36 22:17 07:05 MCHC 30.4 L RDW 15.8 H Lymphocytes # 0.8 L APTT 32.7 H Glucose POC Glucose (mg/dL) 229 H Magnesium TSH 06/20/16 06/20/16 06/20/16 07:05 07:05 08:44 MCHC RDW Lymphocytes # APTT 60.0 H Glucose 174 H POC Glucose (mg/dL) 166 H Magnesium 2.4 H TSH 0.327 L - Diagnostic Findings Chest x-ray: image reviewed CT scan - chest: image reviewed (Agree with reading as per radiology) Assessment and Plan Plan: Impression: 1 Acute hypoxic and hypercapnic respiratory failure mostly secondary to congestive heart failure mostly related to her atrial fibrillation and RVR. There could be a component of diastolic dysfunction, echocardiogram showed good LV function. Ventricular hypertrophy and mild pulmonary hypertension 2 new onset atrial fibrillation, presently on Cardizem drip and IV heparin, patient is being followed by cardiology. 3 history of severe underlying COPD patient will remain on bronchodilators, will utilize Xopenex and Atrovent instead of albuterol. 4 type 2 diabetes 5 history of depression 6 history of GERD and Bateman's esophagus. 7 history of osteoarthritis. 8 chronic tobacco use, and nicotine dependence. Recommendation: Continue present treatment plan including Cardizem drip, diuretics, BiPAP, bronchodilators, empiric antibiotics, and we'll continue to follow. Prognosis is definitely guarded. Patient is refusing to have ABG done , she seems to be comfortable on present settings of BiPAP. Time with Patient: Greater than 30
[2016-06-20 12:05] LABS: Glucose,Whole Blood 219 mg/dL (75-99)
[2016-06-20] MEDS: PIPERACILLIN-TAZOBACTAM 3.375 GM in DEXTROSE/WATER 1 50ML.BAG IVPB SCH ×2 (12:48→18:30)
[2016-06-20] MEDS ORDERED: SODIUM CHLORIDE 0.9% 250 ML IV ONE (13:24)
[2016-06-20] MEDS: HEPARIN SODIUM,PORCINE/D5W PMX 25,000 UNIT in DEXTROSE/WATER 1 500ML.BAG IV SCH (14:33)
[2016-06-20] MEDS: NOREPINEPHRIN 4 MG-0.9% NS PMX 4 MG/250 ML ML IV SCH (14:57)
[2016-06-20] MEDS ORDERED: traMADol 50 MG TAB PO STA (15:09)
--- NOTE | 2016-06-20 15:28 | P.PN ---
Subjective This is a pleasant 71-year-old lady patient of Dr. Raphael and Dr. Chen. She has underlying history off CAD type 2 diabetes mellitus, hypertension, COPD, current heavy tobacco use, chronic rhonchi place, Narvaez's esophagus admitted emergency room secondary to increasing difficulty despite initial treatments at home, she was sent in from Dr. Chen's office secondary to increasing shortness of breath and difficulty in breathing, patient has had problems for about one week, she has increasingly shortness of breath breathing fatigue , conversational dyspnea, palpitations and fast heartbeat. Patient denies any recent fever or chills, patient denies any lower extremity edema or leg pain, patient denies any syncopal event or focal neurologic deficits. Patient denies any falls or recent trauma In the emergency room she was found to be in atrial fibrillation new onset, rapid ventricular rate, heart rate in the 140s, she was very bronchospastic and hypoxemic, she required nebulized treatments without relief, they have started BiPAP treatments and was transferred to ICU. O2 sats at 80%, CTA of the chest was done as a d-dimer was elevated, CT ruled out pulmonary emboli it did show congestive heart failure, additional findings on CAT scan showed scattered groundglass infiltrates with small bilateral pleural effusion she was started on IV Cardizem for atrial fibrillation with IV anticoagulation and IV Lasix. Consult was made with cardiology and Dr. Chen pulmonary medicine and academic records specialist. 06/20: Patient remains in the intensive care unit. BiPAP is at the bedside she is currently on nasal cannula. She is continued on heparin drip and Cardizem drip. Echocardiogram reveals mild concentric left ventricle hypertrophy, EF 50- 55%, mild aortic stenosis, mild mitral regurgitation, mild tricuspid regurgitation, mild pulmonary hypertension. Objective - Vital Signs Vital signs: Vital Signs Temp 98.1 F 06/20/16 04:00 Pulse 115 H 06/20/16 08:33 Resp 18 06/20/16 07:00 BP 93/59 06/20/16 07:00 Pulse Ox 98 06/19/16 18:50 Intake & Output 06/19/16 06/20/16 06/20/16 18:59 06:59 18:59 Intake Total 26.5 583.888 80 Output Total 1450 2335 260 Balance -1423.5 -1751.112 -180 Weight 90.4 kg Intake: Intake, IV Titration 26.5 583.888 80 Amount ACETAMINOPHEN IV (For NPO 100 ) 1,000 mg In Empty Bag 1 bag @ 400 mls/hr IVPB Q6HR PRN Rx#:[id number] Diltiazem 125 mg In 26.5 83.333 Sodium Chloride 0.9% 100 ml @ 7.5 MG/HR 7.5 mls/hr IV .[id number] [facility] Rx#: [id number] Heparin Sodium,Porcine/ 180.555 D5w Pmx 25,000 unit In Dextrose/Water 1 500ml. bag @ 12 UNITS/KG/HR 19. 59 mls/hr IV .Q24H [facility] Rx #:[id number] Sodium Chloride 0.9% 1, 220 80 000 ml @ 20 mls/hr IV . Q24H [facility] Rx#:[id number] Output: Urine 1450 2335 260 Other: Voiding Method Indwelling Catheter - Exam General appearance: cooperative, mild distress, no acute distress, obese - EENT Eyes: anicteric sclerae, EOMI, PERRLA, dentition normal, normal appearance ENT: hard of hearing, NA/AT, normal oropharynx - Neck Neck: normal ROM - Respiratory Respiratory: bilateral: diminished, wheezing, prolonged expiration - Cardiovascular Rhythm: irregularly irregular (Tachycardic heart rate 130s) Heart sounds: normal: S1, S2 Abnormal Heart Sounds: systolic murmur, no diastolic murmur, no rub, no S3 Gallop, no S4 Gallop, no click, no other - Gastrointestinal General gastrointestinal: normal bowel sounds, soft - Integumentary Integumentary: normal, normal turgor - Neurologic Neurologic: CNII-XII intact - Musculoskeletal Musculoskeletal: gait normal, strength equal bilaterally - Psychiatric Psychiatric: A&O x's 3 (Obtunded and lethargic unable to obtain orientation), appropriate affect - Labs CBC & Chem 7: 06/20/16 07:05 06/20/16 07:05 Labs: Abnormal Lab Results - Last 24 Hours (Table) 06/19/16 06/19/16 06/20/16 Range/Units 19:36 22:17 07:05 MCHC 30.4 L (31.0-37.0) g/dL RDW 15.8 H (11.5-15.5) % Lymphocytes # 0.8 L (1.0-4.8) k/uL APTT 32.7 H (22.0-30.0) sec Glucose (74-99) mg/dL POC Glucose (mg/dL) 229 H (75-99) mg/dL Magnesium (1.6-2.3) mg/dL TSH (0.465-4.680) mIU/L 06/20/16 06/20/16 06/20/16 Range/Units 07:05 07:05 08:44 MCHC (31.0-37.0) g/dL RDW (11.5-15.5) % Lymphocytes # (1.0-4.8) k/uL APTT 60.0 H (22.0-30.0) sec Glucose 174 H (74-99) mg/dL POC Glucose (mg/dL) 166 H (75-99) mg/dL Magnesium 2.4 H (1.6-2.3) mg/dL TSH 0.327 L (0.465-4.680) mIU/L Assessment and Plan Plan: 1. Acute respiratory failure with hypoxemic respiratory failure accompanied by acute diastolic CHF from atrial fibrillation new onset, pulmonary edema and severe COPD exacerbation, patient would be seen in ICU secondary to severe hypoxemia, she would be seen by academic records specialist Dr. Chen, along with cardiology , patient is currently on IV Lasix 20 mg every 8 hours IV Cardizem, and nebulized albuterol Atrovent and Pulmicort IV Solu-Medrol 2. Acute diastolic CHF secondary to atrial fibrillation, echocardiogram will be obtained to evaluate systolic function, IV diuresing using Lasix 20 mg daily 8 hours, patient would need an GUILLAUME inhibitor or an ARB once stabilized 3. Metabolic encephalopathy secondary to hypoxemic respiratory failure, need to rule out sepsis with SIRS, urinalysis will obtained, chest x-ray and CTA failed to reveal any pneumonic infiltrates 2. New onset atrial fibrillation, patient would have a thyroid function test echocardiogram cardiac troponins and an echocardiogram patient would be evaluated to include cardiac ischemia cardiology will be following her closely patient is currently receiving IV Cardizem and IV heparin this will be transitioned to an oral long-term anticoagulation once stable, chads 2 vasc score of 3 3. Diabetes mellitus type 2 with hyperglycemia, she is expected to be hyperglycemic on as she is on Solu-Medrol, patient will be started on NPH 10 units twice a day with NovoLog coverage, Glucotrol currently is on hold 5 mg twice a day while patient is still obtunded and lethargic 4. GERD on maintenance omeprazole 40 mg daily 5. Anxiety depression on citalopram 40 mg daily 6 chronic ostial arthritis pain on [place] 10 every 6 hours when necessary to be held at this time secondary to repair gene obtundation 7 chronic tobacco use patient is in agreement with nicotine patches to be provided she smokes 2 packs per day nicotine patch at 21 mics 8 Prognosis guarded, CODE STATUS full, DVT prophylaxis with IV heparin secondary to atrial fibrillatiom, GI prophylaxis on maintenance omeprazole Impression and plan of care have been directed as dictated by the signing physician. Rosalba Mooney nurse practitioner acting as scribe for signing physician. Time with Patient: Greater than 30
[2016-06-20] MEDS: SODIUM CHLORIDE 0.9% 1,000 ML IV SCH (16:10)
[2016-06-20 18:19] LABS: Glucose,Whole Blood 191 mg/dL (75-99)
[2016-06-20] MEDS: HYDROcodone/APAP 10-325MG 1 EACH TAB PO PRN (18:24)
--- NOTE | 2016-06-20 21:24 | CONS ---
DATE OF CONSULTATION: This is a 71-year-old lady who is known to be a smoker; still smokes 2 packs a day and he is under the care of Dr. Chen and Dr. Raphael on a regular basis. She comes in with increasing shortness of breath that has been going on for 4 to 5 days with wheezing and also coughing. She went to see Dr. Chen, who noted that she was in atrial fibrillation with a rapid ventricular rate and sent her to the emergency room. After arrival here in the hospital she received a Cardizem drip, and I think this is probably a new-onset atrial fibrillation in a patient who has the setup to have atrial fibrillation, given her chronic pulmonary disease. However, I gave her Lopressor and Verapamil at 40 mg. With this she became hypotensive, requiring a small dose of Levophed this morning. However, her shortness of breath has improved. She is feeling somewhat better with some breathing treatments as well. PAST MEDICAL HISTORY: 1. Chronic history of smoking at least 1 to 2 packs a day. 2. COPD. 3. Mild depression. 4. History of type 2 diabetes mellitus. MEDICATIONS: 1. Glipizide. 2. Inhalers. 3. Celexa. 4. Xanax. ALLERGIES: NONE. REVIEW OF SYSTEMS: Remarkable for generalized weakness, lack of energy, cough, smoking with wheezing. She has no hematemesis, melena, genitourinary symptoms, fevers, chills or cough with expectoration. Physical examination revealed a blood pressure of about 110/70. Pulse rate was about 128 per minute. HEENT: Unremarkable. Fundus was not examined by me. Neck is supple. There is JVD of 1 cm. No carotid bruit. Heart exam reveals S1, S2 heard normally with irregular rhythm. There is a short systolic murmur. Lungs reveal diminished air entry with scattered rhonchi. Abdomen is soft, nontender. Lower extremities reveal diminished pulses. CENTRAL NERVOUS SYSTEM: Grossly no focal deficits. EKG revealed atrial fibrillation, rapid rate, nonspecific ST-T changes. Echocardiogram revealed ejection fraction between 50% and 55% with severely enlarged atria, mild to moderate pulmonary hypertension, and aortic valve sclerosis. Because of elevated D-dimer, patient went on to have a CT angiography which did not reveal any evidence for pulmonary embolism. Her laboratory data suggested that there is evidence of modest elevation of BNP in the range of 3600. Her troponins are normal. Thyroid functions are acceptable. IMPRESSION: 1. Exacerbation of chronic obstructive pulmonary disease. 2. New-onset atrial fibrillation. 3. Probable diastolic dysfunction. 4. Chronic history of tobacco abuse. RECOMMENDATIONS: I recommended that we give Lopressor and Verapamil, but with this she became hypotensive; therefore we will continue to support with some fluid Levophed drip and see how she does. Rate control and anticoagulation as advised. Patient is already on a heparin drip. Prognosis remains guarded for this patient. I came back and talked to the family at length and explained to them that her atrial fibrillation is probably related to her chronic pulmonary disease, and we will continue current medical regimen and see how she does. Prognosis remains poor overall, given her multiple medical problems and continued smoking.
[2016-06-20 21:44] LABS: Glucose,Whole Blood 87 mg/dL (75-99)
[2016-06-21] MEDS: methylPREDNISolone SOD SUCCI 125 MG/2 ML VIAL IV SCH ×2 (00:18→06:44)
[2016-06-21] MEDS: FUROSEMIDE 10 MG/ML 4 ML VIAL IV SCH ×3 (00:18→17:56)
[2016-06-21] MEDS: SODIUM CHLORIDE 0.9% 1,000 ML IV SCH ×5 (00:18→22:38)
[2016-06-21] MEDS: HYDROcodone/APAP 10-325MG 1 EACH TAB PO PRN ×4 (00:22→21:06)
[2016-06-21] MEDS: PIPERACILLIN-TAZOBACTAM 3.375 GM in DEXTROSE/WATER 1 50ML.BAG IVPB SCH ×3 (00:32→16:59)
[2016-06-21] MEDS ORDERED: DEXTROSE 5% IN WATER 100 ML with AMIODARONE 150 MG IV ONE (01:31)
[2016-06-21] MEDS: AMIODARONE 450 MG in DEXTROSE 5% IN WATER 250 ML IV SCH ×6 (02:27→21:41)
[2016-06-21] MEDS: INSULIN NPH 300 UNIT/3 ML VIAL SQ SCH ×3 (02:51→21:33)
[2016-06-21] MEDS: NOREPINEPHRIN 4 MG-0.9% NS PMX 4 MG/250 ML ML IV SCH ×2 (04:16→22:39)
[2016-06-21 05:13] LABS: Basophils % (A) 0 %; CH 26.8; CHCM 30.2; Eosinophils % (A) 0 %; HCT 41.9 % (34.0-46.0); HDW 3.06; HGB 12.3 gm/dL (11.4-16.0); Hypochromasia Marked; Luc % (Auto) 1; Lymphocytes # (A) 1.3 k/uL (1.0-4.8); Lymphocytes % (A) 9 %; MCH 26.3 pg (25.0-35.0); MCHC 29.4 g/dL (31.0-37.0); MCV 89.5 fL (80.0-100.0); Mean Platelet Volume 7.4; Monocytes # (A) 0.4 k/uL (0-1.0); Monocytes % (A) 3 %; Neutrophils % (A) 88 %; RBC 4.69 m/uL (3.80-5.40); RDW 15.6 % (11.5-15.5); WBC 14.8 k/uL (3.8-10.6); WBC (Perox) 15.65
[2016-06-21 05:24] LABS: INR 1.4 (<1.1); Partial Thromboplastin Time 57.4 sec (22.0-30.0); Prothrombin Time 13.3 sec (9.0-12.0)
[2016-06-21 05:35] LABS: Calcium 8.6 mg/dL (8.4-10.2); Magnesium 2.1 mg/dL (1.6-2.3); Phosphorous 5.1 mg/dL (2.5-4.5); Potassium 3.9 mmol/L (3.5-5.1); Total Bilirubin 0.9 mg/dL (0.2-1.3); Total Protein 6.7 g/dL (6.3-8.2)
[2016-06-21] MEDS ORDERED: Potassium Replacement Protocol 1 EACH MISC MISCELLANE PRN (06:10)
[2016-06-21] MEDS ORDERED: POTASSIUM CHLORIDE ER 20 MEQ TAB.ER PO SCH (07:00)
--- NOTE | 2016-06-21 07:09 | XR ---
EXAMINATION TYPE: XR chest 1V DATE OF EXAM: 06/21/2016 6:51 AM HISTORY: Shortness of breath. COMPARISON: 06/20/2016 TECHNIQUE: Single view of the chest is submitted. FINDINGS: Demonstrated are scattered senescent parenchymal change. There is persistent right basilar infiltrate. The heart is enlarged. Mild pulmonary venous congestion. Hilar and mediastinal structures are within normal limits. Degenerative changes are seen of the dorsal spine. IMPRESSION: 1. Essentially stable chest.
[2016-06-21] MEDS: LEVALBUTEROL NEB 1.25 MG/3 ML AMP INHALATION PRN ×2 (07:25→15:33)
[2016-06-21 07:54] LABS: Glucose,Whole Blood 190 mg/dL (75-99)
[2016-06-21] MEDS: NICOTINE 21MG/24HR PATCH TRANSDERM SCH (08:56)
[2016-06-21] MEDS: glipiZIDE 5 MG TAB PO SCH ×2 (08:56→17:56)
[2016-06-21] MEDS: PANTOPRAZOLE 40 MG TABLET PO SCH (08:56)
[2016-06-21] MEDS: CITALOPRAM HYDROBROMIDE 20 MG TAB PO SCH (08:56)
[2016-06-21] MEDS: METOPROLOL TARTRATE 25 MG TAB PO SCH ×3 (08:57→21:06)
[2016-06-21] MEDS: INSULIN LISPRO (humaLOG) 300 UNIT/3 ML VIAL SQ SCH ×3 (09:52→17:58)
[2016-06-21 10:02] VITALS: BMI 39.3
[2016-06-21 12:27] LABS: Glucose,Whole Blood 163 mg/dL (75-99)
--- NOTE | 2016-06-21 13:14 | P.PN ---
Subjective Principal diagnosis: Acute hypoxic and hypercapnic respiratory failure secondary to congestive heart failure secondary to atrial fibrillation and RVR, diastolic dysfunction, and underlying COPD. This is a 71-year-old female with history of multiple medical problems including coronary artery disease, type 2 diabetes, COPD, heavy smoker, history of Narvaez esophagus, patient was initially seen by Dr. Chen with increased shortness of breath, and difficulty breathing. Her symptoms have been going on for about a week. She was also complaining of fatigue, conversational dyspnea, and palpitations. In the ER, patient was found to be in pulmonary edema, she was also noted to be in atrial fibrillation with RVR, and this is supposedly new onset A. fib. Heart rate was in the 140 range, patient was noted to be bronchospastic, she was given diuretics in the ER, and she was placed on BiPAP. CT of the chest showed evidence of pulmonary edema, groundglass infiltrates were noted bilaterally and bilateral pleural effusions. There was also evidence of pericardial effusion, transverse measurement of 1.4 cm, and some nonspecific mediastinal adenopathy noted. And not felt to be clinical seek significant. At any rate patient was placed on BiPAP, transferred to the ICU, placed on diuretics, bronchodilators, steroids, and I was asked to see her on consultation. Patient was reevaluated today on 06/21/2016, clinically she is feeling better, chest x-ray continues to show mild interstitial edema improved compared to last chest x-ray. Mild pulmonary vascular congestion is noted, and some scattered senescent parenchymal changes are also noted labs were reviewed, WBC count is 14.8 hemoglobin is 12.3 BUN is 25 creatinine is 1.16. Objective - Vital Signs Vital signs: Vital Signs Temp 98.2 F 06/21/16 08:00 Pulse 120 H 06/21/16 11:00 Resp 16 06/21/16 11:00 BP 83/61 06/21/16 11:00 Pulse Ox 92 L 06/21/16 11:00 Intake & Output 06/20/16 06/21/16 06/21/16 18:59 06:59 18:59 Intake Total 6947.888 5527.250 921.500 Output Total 598 1995 660 Balance 531.695 48.250 261.500 Weight 91.4 kg 91.4 kg Intake: IV 290 1625 162.5 Piperacillin-Tazobactam 3 37.5 .375 gm In Dextrose/Water 1 50ml.bag @ 12.5 mls/hr IVPB Q8HR [facility] Rx#: [id number] Sodium Chloride 0.9% 1, 250 1625 125 000 ml @ 125 mls/hr IV . Q8H [facility] Rx#:[id number] Sodium Chloride 0.9% 1, 40 000 ml @ 20 mls/hr IV . Q24H [facility] Rx#:[id number] Intake, IV Titration 839.695 418.250 759.000 Amount Amiodarone 450 mg In 259.000 Dextrose 5% in Water 250 ml @ 1 MG/MIN 34.53 mls/ hr IV .Q7H31M [facility] Rx#: [id number] Dextrose 5% in Water 100 100 ml @ 618 mls/hr IV .Q10M [facility] with Amiodarone 150 mg Rx#:[id number] Diltiazem 125 mg In 111 Sodium Chloride 0.9% 100 ml @ 7.5 MG/HR 7.5 mls/hr IV .[id number] [facility] Rx#: [id number] Heparin Sodium,Porcine/ 319.445 500 D5w Pmx 25,000 unit In Dextrose/Water 1 500ml. bag @ 12 UNITS/KG/HR 19. 59 mls/hr IV .Q24H [facility] Rx #:[id number] Norepinephrin 4 mg-0.9% 19.25 230.750 Ns Pmx 4 mg In 250 ml @ Titrate IV .Q0M [facility] Rx#: [id number] Piperacillin-Tazobactam 3 87.5 .375 gm In Dextrose/Water 1 50ml.bag @ 12.5 mls/hr IVPB Q8HR [facility] Rx#: [id number] Sodium Chloride 0.9% 1, 390 000 ml @ 20 mls/hr IV . Q24H [facility] Rx#:[id number] Output: Urine 598 1995 660 Other: Voiding Method Indwelling Catheter Indwelling Catheter - Exam Revealed a 71-year-old female in moderate respiratory distress, presently on nasal cannula at 5 L HEENT:[Neck is supple.] [No neck masses.] [No thyromegaly.] [No JVD.] Chest: [Crackles and rhonchi noted at the bases bilaterally] Cardiac Exam: [Irregular irregular rhythm Normal S1 and S2, no S3 gallop, 2/6 systolic murmur throughout the precordium] Abdomen: [Soft, nontender, no megaly, no rebound, no guarding, normal bowel sounds.] Extremities: [No clubbing, trace of bipedal edema, no cyanosis.] Neurological Exam: [No focal neurologic deficit.] - Labs CBC & Chem 7: 06/21/16 04:33 06/21/16 04:33 Labs: Abnormal Lab Results - Last 24 Hours (Table) 06/20/16 06/21/16 06/21/16 Range/Units 18:17 04:33 04:33 WBC 14.8 H (3.8-10.6) k/uL MCHC 29.4 L (31.0-37.0) g/dL RDW 15.6 H (11.5-15.5) % Neutrophils # 13.0 H (1.3-7.7) k/uL PT (9.0-12.0) sec APTT (22.0-30.0) sec BUN 25 H (7-17) mg/dL Creatinine 1.16 H (0.52-1.04) mg/dL Glucose 191 H (74-99) mg/dL POC Glucose (mg/dL) 191 H (75-99) mg/dL Phosphorus 5.1 H (2.5-4.5) mg/dL 06/21/16 06/21/16 06/21/16 Range/Units 04:33 07:41 12:25 WBC (3.8-10.6) k/uL MCHC (31.0-37.0) g/dL RDW (11.5-15.5) % Neutrophils # (1.3-7.7) k/uL PT 13.3 H (9.0-12.0) sec APTT 57.4 H (22.0-30.0) sec BUN (7-17) mg/dL Creatinine (0.52-1.04) mg/dL Glucose (74-99) mg/dL POC Glucose (mg/dL) 190 H 163 H (75-99) mg/dL Phosphorus (2.5-4.5) mg/dL Assessment and Plan Plan: Impression: 1 Acute hypoxic and hypercapnic respiratory failure mostly secondary to congestive heart failure mostly related to her atrial fibrillation and RVR. There could be a component of diastolic dysfunction, echocardiogram showed good LV function. Ventricular hypertrophy and mild pulmonary hypertension 2 new onset atrial fibrillation, being addressed by cardiology 3 history of severe underlying COPD patient will remain on bronchodilators, will utilize Xopenex and Atrovent instead of albuterol. 4 type 2 diabetes 5 history of depression 6 history of GERD and Narvaez's esophagus. 7 history of osteoarthritis. 8 chronic tobacco use, and nicotine dependence. Recommendation: Continue present treatment plan including Cardizem , diuretics, BiPAP, bronchodilators, empiric antibiotics, and we'll continue to follow. Prognosis is definitely guarded. Patient is refusing to have ABG done, she seems to be more comfortable and less short of breath today. Time with Patient: Less than 30
[2016-06-21] MEDS ORDERED: DIGOXIN 250 MCG/ML 2 ML AMP IVP ONE ×2 (13:50→20:00)
--- NOTE | 2016-06-21 14:49 | P.PN ---
Subjective This is a pleasant 71-year-old lady patient of Dr. Raphael and Dr. Chen. She has underlying history off CAD type 2 diabetes mellitus, hypertension, COPD, current heavy tobacco use, chronic rhonchi place, Narvaez's esophagus admitted emergency room secondary to increasing difficulty despite initial treatments at home, she was sent in from Dr. Chen's office secondary to increasing shortness of breath and difficulty in breathing, patient has had problems for about one week, she has increasingly shortness of breath breathing fatigue , conversational dyspnea, palpitations and fast heartbeat. Patient denies any recent fever or chills, patient denies any lower extremity edema or leg pain, patient denies any syncopal event or focal neurologic deficits. Patient denies any falls or recent trauma In the emergency room she was found to be in atrial fibrillation new onset, rapid ventricular rate, heart rate in the 140s, she was very bronchospastic and hypoxemic, she required nebulized treatments without relief, they have started BiPAP treatments and was transferred to ICU. O2 sats at 80%, CTA of the chest was done as a d-dimer was elevated, CT ruled out pulmonary emboli it did show congestive heart failure, additional findings on CAT scan showed scattered groundglass infiltrates with small bilateral pleural effusion she was started on IV Cardizem for atrial fibrillation with IV anticoagulation and IV Lasix. Consult was made with cardiology and Dr. Chen pulmonary medicine and high speed warper tender. 06/20: Patient remains in the intensive care unit. BiPAP is at the bedside she is currently on nasal cannula. She is continued on heparin drip and Cardizem drip. Echocardiogram reveals mild concentric left ventricle hypertrophy, EF 50- 55%, mild aortic stenosis, mild mitral regurgitation, mild tricuspid regurgitation, mild pulmonary hypertension. 06/21: Patient became hypotensive with Lopressor and verapamil. She is on norepinephrine. Repeat chest x-ray is stable. She is continued on heparin drip and amiodarone drip was started early this morning. Heart rate is in the 120s. Patient is complaining of restless leg syndrome for which Requip has been added. Patient also is requesting more frequent Xanax for anxiety which was increased to twice daily. Daughter states the patient has intention to go home and start smoking again. Anticipate the patient will need subacute rehab at the time of discharge. Objective - Vital Signs Vital signs: Vital Signs Temp 98.2 F 06/21/16 08:00 Pulse 129 H 06/21/16 09:30 Resp 19 06/21/16 09:30 BP 94/57 06/21/16 09:30 Pulse Ox 92 L 06/21/16 09:30 Intake & Output 06/20/16 06/21/16 06/21/16 18:59 06:59 18:59 Intake Total 2949.044 6484.250 361.945 Output Total 598 1995 190 Balance 531.695 48.250 171.945 Weight 91.4 kg 91.4 kg Intake: IV 290 1625 137.5 Piperacillin-Tazobactam 3 12.5 .375 gm In Dextrose/Water 1 50ml.bag @ 12.5 mls/hr IVPB Q8HR [facility] Rx#: [id number] Sodium Chloride 0.9% 1, 250 1625 125 000 ml @ 125 mls/hr IV . Q8H [facility] Rx#:[id number] Sodium Chloride 0.9% 1, 40 000 ml @ 20 mls/hr IV . Q24H [facility] Rx#:[id number] Intake, IV Titration 839.695 418.250 224.445 Amount Amiodarone 450 mg In 224.445 Dextrose 5% in Water 250 ml @ 1 MG/MIN 34.53 mls/ hr IV .Q7H31M [facility] Rx#: [id number] Dextrose 5% in Water 100 100 ml @ 618 mls/hr IV .Q10M [facility] with Amiodarone 150 mg Rx#:[id number] Diltiazem 125 mg In 111 Sodium Chloride 0.9% 100 ml @ 7.5 MG/HR 7.5 mls/hr IV .[id number] [facility] Rx#: [id number] Heparin Sodium,Porcine/ 319.445 D5w Pmx 25,000 unit In Dextrose/Water 1 500ml. bag @ 12 UNITS/KG/HR 19. 59 mls/hr IV .Q24H [facility] Rx #:[id number] Norepinephrin 4 mg-0.9% 19.25 230.750 Ns Pmx 4 mg In 250 ml @ Titrate IV .Q0M [facility] Rx#: [id number] Piperacillin-Tazobactam 3 87.5 .375 gm In Dextrose/Water 1 50ml.bag @ 12.5 mls/hr IVPB Q8HR [facility] Rx#: [id number] Sodium Chloride 0.9% 1, 390 000 ml @ 20 mls/hr IV . Q24H [facility] Rx#:[id number] Output: Urine 598 1995 190 Other: Voiding Method Indwelling Catheter Indwelling Catheter - Exam General appearance: cooperative, mild distress, no acute distress, obese - EENT Eyes: anicteric sclerae, EOMI, PERRLA, dentition normal, normal appearance ENT: hard of hearing, NA/AT, normal oropharynx - Neck Neck: normal ROM - Respiratory Respiratory: bilateral: diminished, wheezing, prolonged expiration - Cardiovascular Rhythm: irregularly irregular (Tachycardic heart rate 130s) Heart sounds: normal: S1, S2 Abnormal Heart Sounds: systolic murmur, no diastolic murmur, no rub, no S3 Gallop, no S4 Gallop, no click, no other - Gastrointestinal General gastrointestinal: normal bowel sounds, soft - Integumentary Integumentary: normal, normal turgor - Neurologic Neurologic: CNII-XII intact - Musculoskeletal Musculoskeletal: gait normal, strength equal bilaterally - Psychiatric Psychiatric: A&O x's 3 (Obtunded and lethargic unable to obtain orientation), appropriate affect - Labs CBC & Chem 7: 06/21/16 04:33 06/21/16 04:33 Labs: Abnormal Lab Results - Last 24 Hours (Table) 06/20/16 06/20/16 06/20/16 Range/Units 07:05 12:04 18:17 WBC (3.8-10.6) k/uL MCHC (31.0-37.0) g/dL RDW (11.5-15.5) % Neutrophils # (1.3-7.7) k/uL PT (9.0-12.0) sec APTT (22.0-30.0) sec BUN (7-17) mg/dL Creatinine (0.52-1.04) mg/dL Glucose 174 H (74-99) mg/dL POC Glucose (mg/dL) 219 H 191 H (75-99) mg/dL Phosphorus (2.5-4.5) mg/dL Magnesium 2.4 H (1.6-2.3) mg/dL TSH 0.327 L (0.465-4.680) mIU/L 06/21/16 06/21/16 06/21/16 Range/Units 04:33 04:33 04:33 WBC 14.8 H (3.8-10.6) k/uL MCHC 29.4 L (31.0-37.0) g/dL RDW 15.6 H (11.5-15.5) % Neutrophils # 13.0 H (1.3-7.7) k/uL PT 13.3 H (9.0-12.0) sec APTT 57.4 H (22.0-30.0) sec BUN 25 H (7-17) mg/dL Creatinine 1.16 H (0.52-1.04) mg/dL Glucose 191 H (74-99) mg/dL POC Glucose (mg/dL) (75-99) mg/dL Phosphorus 5.1 H (2.5-4.5) mg/dL Magnesium (1.6-2.3) mg/dL TSH (0.465-4.680) mIU/L 06/21/16 Range/Units 07:41 WBC (3.8-10.6) k/uL MCHC (31.0-37.0) g/dL RDW (11.5-15.5) % Neutrophils # (1.3-7.7) k/uL PT (9.0-12.0) sec APTT (22.0-30.0) sec BUN (7-17) mg/dL Creatinine (0.52-1.04) mg/dL Glucose (74-99) mg/dL POC Glucose (mg/dL) 190 H (75-99) mg/dL Phosphorus (2.5-4.5) mg/dL Magnesium (1.6-2.3) mg/dL TSH (0.465-4.680) mIU/L Assessment and Plan Plan: 1. Acute hypoxic respiratory failure due to acute diastolic heart failure from atrial fibrillation new onset, pulmonary edema and severe COPD exacerbation. She remains in intensive care unit. Continue amiodarone drip, Lasix 40 mg IV every 8 hours, heparin drip, Solu-Medrol currently at 40 mg every 8 hours, norepinephrine, Zosyn. 2. Acute diastolic CHF secondary to atrial fibrillation. Continue amiodarone and heparin, Lopressor 25 mg 3 times daily 3. Metabolic encephalopathy secondary to hypoxemic respiratory failure, need to rule out sepsis with SIRS, urinalysis will obtained, chest x-ray and CTA failed to reveal any pneumonic infiltrates 2. New onset atrial fibrillation. Continue amiodarone and heparin drip. Cardiology consult appreciated. 3. Diabetes mellitus type 2 with hyperglycemia secondary to steroids. Continue NPH 10 units twice daily, Humalog scale, glipizide 5 mg twice daily. 4. GERD on maintenance omeprazole 40 mg daily 5. Anxiety generalized and recurrent depression on citalopram 40 mg daily 6. Chronic ostial arthritis pain to the bilateral knees. [place] resumed. 7. Chronic tobacco use. Continue nicotine patch. 8. DVT prophylaxis with IV heparin secondary to atrial fibrillatiom. 9. GI prophylaxis on maintenance omeprazole 10. Prognosis guarded CODE STATUS no code Discharge plan: To be determined, most likely subacute rehab. Impression and plan of care have been directed as dictated by the signing physician. Rosalba Mooney nurse practitioner acting as scribe for signing physician. Time with Patient: Greater than 30
[2016-06-21] MEDS: HEPARIN SODIUM,PORCINE/D5W PMX 25,000 UNIT in DEXTROSE/WATER 1 500ML.BAG IV SCH (15:00)
--- NOTE | 2016-06-21 15:26 | CDI ---
In responding to this query, please exercise your independent professional judgment. The [facility] Coding Staff and Clinical Documentation Specialists appreciate your assistance in clarifying documentation, maintaining compliance with coding guidelines, accurately documenting patients condition and capturing severity of illness. The fact that a question is asked does not imply that any particular answer is desired or expected. Communication forms are a method of clarifying documentation and are not made part of the Legal Health Record. Thank you in advance for your clarification. Last Revision, May 2015 Hermelindo Alberts [address] [facility] [place] [address] Documentation Clarification Form Date: 06/21/2016 3:18:00 PM From: Milagros Carroll Admit Date: 06/19/2016 2:36:00 PM Patient Name: Shelley Carrington Visit Number: [id number] Dr. Coby Escalera and Rosalba Mooney NP Patient history/risk factors: Hypertension DM type 2 CAD New onset Atrial Fibrillation CHF exacerbation COPD exacerbation Pulmonary edema IV Lasix Clinical Indicators: Vitals on 06/20: bp dropped to 67/37 Treatment: IV Levophed IV fluids ICU monitoring In your professional opinion, can you please clarify if this describes a diagnosis listed below? Cardiogenic Shock o Cause (please specify) Hypovolemic Shock o Cause (please specify) Other, please specify Unable to determine Please document in your progress notes and discharge summary in order to capture severity of illness and risk of mortality. Include clinical findings that support your diagnosis. FYI: Press F11 to launch patient chart. Place X here if this finding has no clinical significance, is not applicable or if you are not able to provide any additional documentation. DAV
--- NOTE | 2016-06-21 15:37 | CDI ---
In responding to this query, please exercise your independent professional judgment. The [facility] Coding Staff and Clinical Documentation Specialists appreciate your assistance in clarifying documentation, maintaining compliance with coding guidelines, accurately documenting patients condition and capturing severity of illness. The fact that a question is asked does not imply that any particular answer is desired or expected. Communication forms are a method of clarifying documentation and are not made part of the Legal Health Record. Thank you in advance for your clarification. Last Revision, January 2015 Hermelindo Alberts [address] [facility] [place] [address] Documentation Clarification Form Date: 06/21/2016 3:29:00 PM From: Milagros Carroll Admit Date: 06/19/2016 2:36:00 PM Patient Name: Shelley Carrington Visit Number: [id number] Dr. Coby Escalera and Rosalba Mooney NP History/Risk Factors: Hypertension CHF Exacerbation IV Lasix IV Levophed Clinical Indicators: Labs on 06/21: BUN 25, Cr 1.16, GFR 46 Echo on 06/20: mild left ventricular hypertrophy Treatment: IV fluids ICU Monitoring In order to capture the severity of condition, please clarify if the description signifies one or more of the diagnoses listed below: Acute renal failure Acute on chronic renal failure Chronic kidney disease (CKD) and please stage Stage 1 GFR >90 Stage 2 GFR 60-89 Stage 3 GFR 30-59 Stage 4 GFR 15-29 Stage 5 GFR <15 Cardiorenal Syndrome Unable to determine Other, specify Please document in your progress notes and discharge summary in order to capture severity of illness and risk of mortality. Include clinical findings that support your diagnosis. FYI: Press F11 to launch patient chart. Place X here if this finding has no clinical significance, is not applicable or if you are not able to provide any additional documentation. acute renal failure with CKD 2, hypovoemic shock form atrial fibrillation MTDD
[2016-06-21] MEDS: ALPRAZolam 0.25 MG TAB PO PRN (17:01)
[2016-06-21 17:28] LABS: Glucose,Whole Blood 140 mg/dL (75-99)
[2016-06-21] MEDS: methylPREDNISolone SOD SUCCI 40 MG/ML 1 ML VIAL IV SCH (17:56)
[2016-06-21 21:36] LABS: Glucose,Whole Blood 150 mg/dL (75-99)
[2016-06-22] MEDS: PIPERACILLIN-TAZOBACTAM 3.375 GM in DEXTROSE/WATER 1 50ML.BAG IVPB SCH ×3 (00:10→16:52)
[2016-06-22] MEDS: methylPREDNISolone SOD SUCCI 40 MG/ML 1 ML VIAL IV SCH ×3 (01:15→16:52)
[2016-06-22] MEDS: FUROSEMIDE 10 MG/ML 4 ML VIAL IV SCH ×2 (01:30→09:01)
--- NOTE | 2016-06-22 04:20 | PN ---
This lady developed hypotension after combination of beta sulma and ( ). She is still on a small dose of Levophed, doing better. Atrial fibrillation is evident. Rate control with slightly suboptimal but I will give a digoxin 0.25 mg IV push and repeat it in 6 hours. She is doing fairly well compared to yesterday. Her vital signs are stable and a small dose of Levophed. S1, S2 heard normally, irregular rate and rhythm noted, short systolic murmur noted. Lungs reveal diminished air entry. Abdomen and lower extremity exam is unchanged the patient.
[2016-06-22 05:02] LABS: Basophils % (A) 0 %; CH 26.9; CHCM 31.4; Eosinophils % (A) 0 %; HDW 3.25; HGB 12.8 gm/dL (11.4-16.0); Hypochromasia Moderate; Luc % (Auto) 1; Lymphocytes # (A) 0.9 k/uL (1.0-4.8); Lymphocytes % (A) 8 %; MCH 26.9 pg (25.0-35.0); MCHC 31.1 g/dL (31.0-37.0); MCV 86.3 fL (80.0-100.0); Mean Platelet Volume 7.1; Monocytes # (A) 0.4 k/uL (0-1.0); Monocytes % (A) 3 %; Neutrophils # (A) 9.5 k/uL (1.3-7.7); Neutrophils % (A) 87 %; RBC 4.75 m/uL (3.80-5.40); RDW 15.4 % (11.5-15.5); WBC 10.9 k/uL (3.8-10.6); WBC (Perox) 11.51
[2016-06-22 05:09] LABS: INR 1.5 (<1.1); Prothrombin Time 14.4 sec (9.0-12.0)
[2016-06-22 05:36] LABS: Calcium 8.3 mg/dL (8.4-10.2); Phosphorous 4.2 mg/dL (2.5-4.5); Potassium 3.7 mmol/L (3.5-5.1)
[2016-06-22] MEDS ORDERED: Potassium Replacement Protocol 1 EACH MISC MISCELLANE PRN (05:55)
[2016-06-22] MEDS: AMIODARONE 450 MG in DEXTROSE 5% IN WATER 250 ML IV SCH ×2 (06:16)
[2016-06-22] MEDS: LEVALBUTEROL NEB 1.25 MG/3 ML AMP INHALATION PRN (07:31)
[2016-06-22 07:33] LABS: Glucose,Whole Blood 140 mg/dL (75-99)
[2016-06-22] MEDS: HYDROcodone/APAP 10-325MG 1 EACH TAB PO PRN ×4 (08:56→23:27)
[2016-06-22] MEDS: POTASSIUM CHLORIDE 10 MEQ, LIDOCAINE 2% INJ 10 MG in SODIUM CHLORIDE 0.9% 100 ML IV SCH ×4 (08:57→18:00)
[2016-06-22] MEDS: SODIUM CHLORIDE 0.9% 1,000 ML IV SCH ×2 (08:58→20:16)
[2016-06-22] MEDS: CITALOPRAM HYDROBROMIDE 20 MG TAB PO SCH (08:58)
[2016-06-22] MEDS: INSULIN NPH 300 UNIT/3 ML VIAL SQ SCH ×2 (08:58→21:45)
[2016-06-22] MEDS: METOPROLOL TARTRATE 25 MG TAB PO SCH (08:59)
[2016-06-22] MEDS: NICOTINE 21MG/24HR PATCH TRANSDERM SCH (09:00)
[2016-06-22] MEDS: PANTOPRAZOLE 40 MG TABLET PO SCH (09:00)
[2016-06-22] MEDS: INSULIN LISPRO (humaLOG) 300 UNIT/3 ML VIAL SQ SCH ×3 (09:00→18:00)
[2016-06-22] MEDS: glipiZIDE 5 MG TAB PO SCH ×2 (09:00→16:53)
[2016-06-22] MEDS: AMIODARONE 200 MG TAB PO SCH ×2 (10:59→21:59)
[2016-06-22] MEDS: APIXABAN 5 MG TAB PO SCH ×2 (10:59→21:59)
--- NOTE | 2016-06-22 11:55 | XR ---
EXAMINATION TYPE: XR chest 1V portable DATE OF EXAM: 06/22/2016 11:49 AM HISTORY: chf. REFERENCE: Previous study dated 06/21/2016. FINDINGS: The heart is enlarged. There is vascular congestion and pulmonary edema. I suspect a small effusion. Overall appearance is very similar to previous. IMPRESSION: CONTINUING CHANGES OF CONGESTIVE HEART FAILURE.
--- NOTE | 2016-06-22 11:55 | PN ---
This lady has new onset atrial fibrillation, chronic history of smoking, COPD. This morning she is in atrial fib, rate is better controlled. Levophed drip is almost off. I am recommending that we not give her beta sulma or verapamil because she developed hypotension with this combination. Instead we will use amiodarone 200 mg b.i.d., wean off the Levophed, start Eliquis 5 mg b.i.d., increase activity, and move her to telemetry this evening. Physical exam revealed blood pressure of 98/60, pulse rate is about 80 to 90, irregular. JVD 1 cm, no carotid bruit. S1, S2 heard normally, irregular rhythm noted, short systolic murmur noted. Lungs revealed diminished air entry. Abdomen and lower extremity exam is unchanged.
--- NOTE | 2016-06-22 12:57 | P.PN ---
Subjective Principal diagnosis: Acute hypoxic and hypercapnic respiratory failure secondary to congestive heart failure secondary to atrial fibrillation and RVR, diastolic dysfunction, and underlying COPD. This is a 71-year-old female with history of multiple medical problems including coronary artery disease, type 2 diabetes, COPD, heavy smoker, history of Narvaez esophagus, patient was initially seen by Dr. Chen with increased shortness of breath, and difficulty breathing. Her symptoms have been going on for about a week. She was also complaining of fatigue, conversational dyspnea, and palpitations. In the ER, patient was found to be in pulmonary edema, she was also noted to be in atrial fibrillation with RVR, and this is supposedly new onset A. fib. Heart rate was in the 140 range, patient was noted to be bronchospastic, she was given diuretics in the ER, and she was placed on BiPAP. CT of the chest showed evidence of pulmonary edema, groundglass infiltrates were noted bilaterally and bilateral pleural effusions. There was also evidence of pericardial effusion, transverse measurement of 1.4 cm, and some nonspecific mediastinal adenopathy noted. And not felt to be clinical seek significant. At any rate patient was placed on BiPAP, transferred to the ICU, placed on diuretics, bronchodilators, steroids, and I was asked to see her on consultation. Patient was reevaluated today on 06/21/2016, clinically she is feeling better, chest x-ray continues to show mild interstitial edema improved compared to last chest x-ray. Mild pulmonary vascular congestion is noted, and some scattered senescent parenchymal changes are also noted labs were reviewed, WBC count is 14.8 hemoglobin is 12.3 BUN is 25 creatinine is 1.16. Patient was reevaluated today on 06/22/2016, remains in the ICU, she was requiring norepinephrine for low blood pressure until early this morning which was discontinued in the last hour. Her heart rate seems to be better controlled , she remains in atrial fibrillation and she is in the 100-120 range. Patient was placed on oral amiodarone. Remains on diuretics, chest x-ray is showing some improvement in her heart failure. But her congestive heart failure is not completely resolved. Labs showed normal CBC normal basic metabolic profile. BUN is 26 creatinine is 1.14 Objective - Vital Signs Vital signs: Vital Signs Temp 97.6 F 06/22/16 08:00 Pulse 94 06/22/16 10:00 Resp 14 06/22/16 10:00 BP 96/60 06/22/16 10:00 Pulse Ox 94 L 06/22/16 10:00 Intake & Output 06/21/16 06/22/16 06/22/16 18:59 06:59 18:59 Intake Total 3021.867 2085 525.0 Output Total 1935 4300 1300 Balance -426.000 -2591 -775.0 Weight 91.4 kg 91.8 kg Intake: IV 750.0 1200 525.0 Piperacillin-Tazobactam 3 50.0 25.0 .375 gm In Dextrose/Water 1 50ml.bag @ 12.5 mls/hr IVPB Q8HR [facility] Rx#: [id number] Sodium Chloride 0.9% 1, 700 1200 500 000 ml @ 100 mls/hr IV . Q10H [facility] Rx#:[id number] Intake, IV Titration 759.000 509 Amount Amiodarone 450 mg In 259.000 259 Dextrose 5% in Water 250 ml @ 1 MG/MIN 34.53 mls/ hr IV .Q7H31M [facility] Rx#: [id number] Heparin Sodium,Porcine/ 500 D5w Pmx 25,000 unit In Dextrose/Water 1 500ml. bag @ 12 UNITS/KG/HR 19. 59 mls/hr IV .Q24H [facility] Rx #:[id number] Norepinephrin 4 mg-0.9% 250 Ns Pmx 4 mg In 250 ml @ Titrate IV .Q0M [facility] Rx#: [id number] Output: Urine 193 4300 1300 Other: Voiding Method Indwelling Catheter Indwelling Catheter Indwelling Catheter # Bowel Movements 1 - Exam Revealed a 71-year-old female in moderate respiratory distress, presently on nasal cannula at 5 L HEENT:[Neck is supple.] [No neck masses.] [No thyromegaly.] [No JVD.] Chest: [Crackles and rhonchi noted at the bases bilaterally] Cardiac Exam: [Irregular irregular rhythm Normal S1 and S2, no S3 gallop, 2/6 systolic murmur throughout the precordium] Abdomen: [Soft, nontender, no megaly, no rebound, no guarding, normal bowel sounds.] Extremities: [No clubbing, trace of bipedal edema, no cyanosis.] Neurological Exam: [No focal neurologic deficit.] - Labs CBC & Chem 7: 06/22/16 03:55 06/22/16 03:55 Labs: Abnormal Lab Results - Last 24 Hours (Table) 06/21/16 06/21/16 06/22/16 Range/Units 17:25 21:33 03:55 WBC 10.9 H (3.8-10.6) k/uL Neutrophils # 9.5 H (1.3-7.7) k/uL Lymphocytes # 0.9 L (1.0-4.8) k/uL PT (9.0-12.0) sec Chloride (98-107) mmol/L Carbon Dioxide (22-30) mmol/L BUN (7-17) mg/dL Creatinine (0.52-1.04) mg/dL Glucose (74-99) mg/dL POC Glucose (mg/dL) 140 H 150 H (75-99) mg/dL Calcium (8.4-10.2) mg/dL 06/22/16 06/22/16 06/22/16 Range/Units 03:55 03:55 07:30 WBC (3.8-10.6) k/uL Neutrophils # (1.3-7.7) k/uL Lymphocytes # (1.0-4.8) k/uL PT 14.4 H (9.0-12.0) sec Chloride 95 L (98-107) mmol/L Carbon Dioxide 36 H (22-30) mmol/L BUN 26 H (7-17) mg/dL Creatinine 1.14 H (0.52-1.04) mg/dL Glucose 119 H (74-99) mg/dL POC Glucose (mg/dL) 140 H (75-99) mg/dL Calcium 8.3 L (8.4-10.2) mg/dL Assessment and Plan Plan: Impression: 1 Acute hypoxic and hypercapnic respiratory failure mostly secondary to congestive heart failure mostly related to her atrial fibrillation and RVR. There could be a component of diastolic dysfunction, echocardiogram showed good LV function. Ventricular hypertrophy and mild pulmonary hypertension 2 new onset atrial fibrillation, being addressed by cardiology. Presently on oral amiodarone. 3 history of severe underlying COPD patient will remain on bronchodilators, will utilize Xopenex and Atrovent instead of albuterol. 4 type 2 diabetes 5 history of depression 6 history of GERD and Narvaze's esophagus. 7 history of osteoarthritis. 8 chronic tobacco use, and nicotine dependence. 9 intermittent episodes of hypotension requiring norepinephrine, patient was taken off norepinephrine early this morning. Recommendation: Continue present treatment plan including Cardizem , diuretics, BiPAP, bronchodilators, empiric antibiotics, and we'll continue to follow. Prognosis is definitely guarded. If the patient remains off norepinephrine, she could be considered for transfer to the cardiac floor with monitor. Time with Patient: Less than 30
--- NOTE | 2016-06-22 14:18 | P.PN ---
Subjective This is a pleasant 71-year-old lady patient of Dr. Raphael and Dr. Chen. She has underlying history off CAD type 2 diabetes mellitus, hypertension, COPD, current heavy tobacco use, chronic rhonchi place, Narvaez's esophagus admitted emergency room secondary to increasing difficulty despite initial treatments at home, she was sent in from Dr. Chen's office secondary to increasing shortness of breath and difficulty in breathing, patient has had problems for about one week, she has increasingly shortness of breath breathing fatigue , conversational dyspnea, palpitations and fast heartbeat. Patient denies any recent fever or chills, patient denies any lower extremity edema or leg pain, patient denies any syncopal event or focal neurologic deficits. Patient denies any falls or recent trauma In the emergency room she was found to be in atrial fibrillation new onset, rapid ventricular rate, heart rate in the 140s, she was very bronchospastic and hypoxemic, she required nebulized treatments without relief, they have started BiPAP treatments and was transferred to ICU. O2 sats at 80%, CTA of the chest was done as a d-dimer was elevated, CT ruled out pulmonary emboli it did show congestive heart failure, additional findings on CAT scan showed scattered groundglass infiltrates with small bilateral pleural effusion she was started on IV Cardizem for atrial fibrillation with IV anticoagulation and IV Lasix. 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 06/20: Patient remains in the intensive care unit. BiPAP is at the bedside she is currently on nasal cannula. She is continued on heparin drip and Cardizem drip. Echocardiogram reveals mild concentric left ventricle hypertrophy, EF 50- 55%, mild aortic stenosis, mild mitral regurgitation, mild tricuspid regurgitation, mild pulmonary hypertension. 06/21: Patient became hypotensive with Lopressor and verapamil. She is on norepinephrine. Repeat chest x-ray is stable. She is continued on heparin drip and amiodarone drip was started early this morning. Heart rate is in the 120s. Patient is complaining of restless leg syndrome for which Requip has been added. Patient also is requesting more frequent Xanax for anxiety which was increased to twice daily. Daughter states the patient has intention to go home and start smoking again. Anticipate the patient will need subacute rehab at the time of discharge. 4/14: Patient remains in intensive care unit and has been on norepinephrine which was discharged off this morning. She remains in atrial fibrillation rate in the 100-120 she is currently on oral amiodarone. White count is down to 10.9. Renal function stable. She is currently on oral Lasix Objective - Vital Signs Vital signs: Vital Signs Temp 97.6 F 06/22/16 08:00 Pulse 95 06/22/16 08:00 Resp 18 06/22/16 08:00 BP 107/57 06/22/16 08:00 Pulse Ox 93 L 06/22/16 08:00 Intake & Output 06/21/16 06/22/16 06/22/16 18:59 06:59 18:59 Intake Total 7501.850 1082 300 Output Total 1935 4300 650 Balance -426.000 -2591 -350 Weight 91.4 kg 91.8 kg Intake: IV 750.0 1200 300 Piperacillin-Tazobactam 3 50.0 .375 gm In Dextrose/Water 1 50ml.bag @ 12.5 mls/hr IVPB Q8HR [facility] Rx#: [id number] Sodium Chloride 0.9% 1, 700 1200 300 000 ml @ 100 mls/hr IV . Q10H [facility] Rx#:[id number] Intake, IV Titration 759.000 509 Amount Amiodarone 450 mg In 259.000 259 Dextrose 5% in Water 250 ml @ 1 MG/MIN 34.53 mls/ hr IV .Q7H31M [facility] Rx#: [id number] Heparin Sodium,Porcine/ 500 D5w Pmx 25,000 unit In Dextrose/Water 1 500ml. bag @ 12 UNITS/KG/HR 19. 59 mls/hr IV .Q24H [facility] Rx #:[id number] Norepinephrin 4 mg-0.9% 250 Ns Pmx 4 mg In 250 ml @ Titrate IV .Q0M [facility] Rx#: [id number] Output: Urine 1935 4300 650 Other: Voiding Method Indwelling Catheter Indwelling Catheter # Bowel Movements 1 - Exam General appearance: cooperative, mild distress, no acute distress, obese - EENT Eyes: anicteric sclerae, EOMI, PERRLA, dentition normal, normal appearance ENT: hard of hearing, NA/AT, normal oropharynx - Neck Neck: normal ROM - Respiratory Respiratory: bilateral: diminished, wheezing, prolonged expiration - Cardiovascular Rhythm: irregularly irregular (Tachycardic heart rate 130s) Heart sounds: normal: S1, S2 Abnormal Heart Sounds: systolic murmur, no diastolic murmur, no rub, no S3 Gallop, no S4 Gallop, no click, no other - Gastrointestinal General gastrointestinal: normal bowel sounds, soft - Integumentary Integumentary: normal, normal turgor - Neurologic Neurologic: CNII-XII intact - Musculoskeletal Musculoskeletal: gait normal, strength equal bilaterally - Psychiatric Psychiatric: A&O x's 3 (Obtunded and lethargic unable to obtain orientation), appropriate affect - Labs CBC & Chem 7: 06/22/16 03:55 06/22/16 03:55 Labs: Abnormal Lab Results - Last 24 Hours (Table) 06/21/16 06/21/16 06/21/16 Range/Units 12:25 17:25 21:33 WBC (3.8-10.6) k/uL Neutrophils # (1.3-7.7) k/uL Lymphocytes # (1.0-4.8) k/uL PT (9.0-12.0) sec Chloride (98-107) mmol/L Carbon Dioxide (22-30) mmol/L BUN (7-17) mg/dL Creatinine (0.52-1.04) mg/dL Glucose (74-99) mg/dL POC Glucose (mg/dL) 163 H 140 H 150 H (75-99) mg/dL Calcium (8.4-10.2) mg/dL 06/22/16 06/22/16 06/22/16 Range/Units 03:55 03:55 03:55 WBC 10.9 H (3.8-10.6) k/uL Neutrophils # 9.5 H (1.3-7.7) k/uL Lymphocytes # 0.9 L (1.0-4.8) k/uL PT 14.4 H (9.0-12.0) sec Chloride 95 L (98-107) mmol/L Carbon Dioxide 36 H (22-30) mmol/L BUN 26 H (7-17) mg/dL Creatinine 1.14 H (0.52-1.04) mg/dL Glucose 119 H (74-99) mg/dL POC Glucose (mg/dL) (75-99) mg/dL Calcium 8.3 L (8.4-10.2) mg/dL 06/22/16 Range/Units 07:30 WBC (3.8-10.6) k/uL Neutrophils # (1.3-7.7) k/uL Lymphocytes # (1.0-4.8) k/uL PT (9.0-12.0) sec Chloride (98-107) mmol/L Carbon Dioxide (22-30) mmol/L BUN (7-17) mg/dL Creatinine (0.52-1.04) mg/dL Glucose (74-99) mg/dL POC Glucose (mg/dL) 140 H (75-99) mg/dL Calcium (8.4-10.2) mg/dL Assessment and Plan Plan: 1. Acute hypoxic respiratory failure due to acute diastolic heart failure from atrial fibrillation new onset, pulmonary edema and severe COPD exacerbation. She remains in intensive care unit. Continue amiodarone, Lasix oral, eliquis, Solu-Medrol currently at 40 mg every 8 hours, norepinephrine on hold, Zosyn. 2. Acute diastolic CHF secondary to atrial fibrillation. Continue amiodarone, eliquis, Lasix 3. Metabolic encephalopathy secondary to hypoxemic respiratory failure, need to rule out sepsis with SIRS, urinalysis will obtained, chest x-ray and CTA failed to reveal any pneumonic infiltrates 2. New onset atrial fibrillation. Continue amiodarone and heparin drip. Cardiology consult appreciated. 3. Diabetes mellitus type 2 with hyperglycemia secondary to steroids. Continue NPH 10 units twice daily, Humalog scale, glipizide 5 mg twice daily. 4. GERD on maintenance omeprazole 40 mg daily 5. Anxiety generalized and recurrent depression on citalopram 40 mg daily 6. Chronic ostial arthritis pain to the bilateral knees. [place] resumed. 7. Chronic tobacco use. Continue nicotine patch. 8. DVT prophylaxis with IV heparin secondary to atrial fibrillatiom. 9. GI prophylaxis on maintenance omeprazole 10. Hypotension due to combination of verapamil and Lopressor requiring vasopressors. 11. Chronic kidney disease stage II Prognosis guarded CODE STATUS no code Discharge plan: To be determined, most likely subacute rehab. Impression and plan of care have been directed as dictated by the signing physician. Rosalba Mooney nurse practitioner acting as scribe for signing physician. Time with Patient: Greater than 30
[2016-06-22] MEDS: FUROSEMIDE 40 MG TAB PO SCH (16:52)
[2016-06-22 17:03] LABS: Glucose,Whole Blood 89 mg/dL (75-99)
[2016-06-22 22:29] LABS: Glucose,Whole Blood 170 mg/dL (75-99)
[2016-06-22] MEDS: NOREPINEPHRIN 4 MG-0.9% NS PMX 4 MG/250 ML ML IV SCH (23:31)
[2016-06-23] MEDS: methylPREDNISolone SOD SUCCI 40 MG/ML 1 ML VIAL IV SCH ×3 (00:22→15:43)
[2016-06-23] MEDS: PIPERACILLIN-TAZOBACTAM 3.375 GM in DEXTROSE/WATER 1 50ML.BAG IVPB SCH ×3 (00:22→15:45)
[2016-06-23] MEDS: HYDROcodone/APAP 10-325MG 1 EACH TAB PO PRN ×3 (04:10→19:55)
[2016-06-23 04:26] LABS: CH 26.5; CHCM 30.7; HCT 39.2 % (34.0-46.0); HDW 3.05; HGB 12.4 gm/dL (11.4-16.0); Hypochromasia Moderate; MCH 27.5 pg (25.0-35.0); MCHC 31.7 g/dL (31.0-37.0); MCV 86.8 fL (80.0-100.0); Mean Platelet Volume 7.7; RBC 4.51 m/uL (3.80-5.40); RDW 15.2 % (11.5-15.5); WBC 6.5 k/uL (3.8-10.6)
[2016-06-23 04:42] LABS: Anion Gap 11 mmol/L; Blood Urea Nitrogen 28 mg/dL (7-17); Carbon Dioxide 39 mmol/L (22-30); Chloride 92 mmol/L (98-107); Glucose 107 mg/dL (74-99); Magnesium 1.9 mg/dL (1.6-2.3); Non-African American GFR(MDRD) 50 (>60 ml/min/1.73 sqM); Phosphorous 3.9 mg/dL (2.5-4.5); Potassium 3.3 mmol/L (3.5-5.1); Sodium 142 mmol/L (137-145)
[2016-06-23 04:47] LABS: INR 1.4 (<1.1)
[2016-06-23] MEDS ORDERED: Magnesium Replacement Protocol 1 EACH MISC MISCELLANE PRN (04:48)
[2016-06-23] MEDS ORDERED: Potassium Replacement Protocol 1 EACH MISC MISCELLANE PRN (04:48)
[2016-06-23] MEDS: SODIUM CHLORIDE 0.9% 1,000 ML IV SCH ×2 (05:21→14:45)
[2016-06-23] MEDS: ALPRAZolam 0.25 MG TAB PO PRN (06:09)
[2016-06-23] MEDS: POTASSIUM CHLORIDE ER 20 MEQ TAB.ER PO SCH ×5 (06:09→15:43)
[2016-06-23] MEDS: MAGNESIUM SULFATE-D5W PMX 1 GM in DEXTROSE/WATER 1 100ML.BAG IVPB SCH ×2 (06:09→07:12)
[2016-06-23] MEDS: LEVALBUTEROL NEB 1.25 MG/3 ML AMP INHALATION PRN ×2 (07:25→14:00)
[2016-06-23 07:27] LABS: Glucose,Whole Blood 106 mg/dL (75-99)
[2016-06-23] MEDS: INSULIN LISPRO (humaLOG) 300 UNIT/3 ML VIAL SQ SCH ×3 (08:11→17:28)
[2016-06-23] MEDS: glipiZIDE 5 MG TAB PO SCH ×2 (08:12→17:28)
[2016-06-23] MEDS: PANTOPRAZOLE 40 MG TABLET PO SCH (08:12)
[2016-06-23] MEDS: AMIODARONE 200 MG TAB PO SCH ×2 (08:13→20:45)
[2016-06-23] MEDS: APIXABAN 5 MG TAB PO SCH ×2 (09:14→20:45)
[2016-06-23] MEDS: NICOTINE 21MG/24HR PATCH TRANSDERM SCH (09:14)
[2016-06-23] MEDS: FUROSEMIDE 40 MG TAB PO SCH ×2 (09:15→15:43)
[2016-06-23] MEDS: CITALOPRAM HYDROBROMIDE 20 MG TAB PO SCH (09:15)
[2016-06-23] MEDS: INSULIN NPH 300 UNIT/3 ML VIAL SQ SCH ×2 (09:16→20:45)
--- NOTE | 2016-06-23 11:29 | P.PN ---
Subjective Principal diagnosis: Acute hypoxic and hypercapnic respiratory failure secondary to congestive heart failure secondary to atrial fibrillation and RVR, diastolic dysfunction, and underlying COPD. This is a 71-year-old female with history of multiple medical problems including coronary artery disease, type 2 diabetes, COPD, heavy smoker, history of Narvaez esophagus, patient was initially seen by Dr. Chen with increased shortness of breath, and difficulty breathing. Her symptoms have been going on for about a week. She was also complaining of fatigue, conversational dyspnea, and palpitations. In the ER, patient was found to be in pulmonary edema, she was also noted to be in atrial fibrillation with RVR, and this is supposedly new onset A. fib. Heart rate was in the 140 range, patient was noted to be bronchospastic, she was given diuretics in the ER, and she was placed on BiPAP. CT of the chest showed evidence of pulmonary edema, groundglass infiltrates were noted bilaterally and bilateral pleural effusions. There was also evidence of pericardial effusion, transverse measurement of 1.4 cm, and some nonspecific mediastinal adenopathy noted. And not felt to be clinical seek significant. At any rate patient was placed on BiPAP, transferred to the ICU, placed on diuretics, bronchodilators, steroids, and I was asked to see her on consultation. Patient was reevaluated today on 06/21/2016, clinically she is feeling better, chest x-ray continues to show mild interstitial edema improved compared to last chest x-ray. Mild pulmonary vascular congestion is noted, and some scattered senescent parenchymal changes are also noted labs were reviewed, WBC count is 14.8 hemoglobin is 12.3 BUN is 25 creatinine is 1.16. Patient was reevaluated today on 06/22/2016, remains in the ICU, she was requiring norepinephrine for low blood pressure until early this morning which was discontinued in the last hour. Her heart rate seems to be better controlled , she remains in atrial fibrillation and she is in the 100-120 range. Patient was placed on oral amiodarone. Remains on diuretics, chest x-ray is showing some improvement in her heart failure. But her congestive heart failure is not completely resolved. Labs showed normal CBC normal basic metabolic profile. BUN is 26 creatinine is 1.14 Reevaluated today on 06/23/2016, she has been off norepinephrine for the last a few hours. Heart rate remains in A. fib and RVR, that is being addressed by cardiology. Last chest x-ray showed improvement in the congestive heart failure. But not completely resolved. Patient continues to have intermittent episodes of shortness of breath, no cough no wheezing no chest pain no fever no chills no hemoptysis no nausea no vomiting no abdominal pain.EBC is relatively normal. Electrolytes are relatively normal however potassium is 3.3 bicarb is 39. Objective - Vital Signs Vital signs: Vital Signs Temp 98.2 F 06/23/16 08:00 Pulse 110 H 06/23/16 11:00 Resp 14 06/23/16 11:00 BP 92/63 06/23/16 11:00 Pulse Ox 93 L 06/23/16 11:00 Intake & Output 06/22/16 06/23/16 06/23/16 18:59 06:59 18:59 Intake Total 1613.75 1438.813 787.5 Output Total 3075 2865 355 Balance -1461.25 -1426.187 432.5 Weight 91.8 kg 91.2 kg Intake: IV 1075.0 1362.5 537.5 Magnesium Sulfate-D5w Pmx 100 100 1 gm In Dextrose/Water 1 100ml.bag @ 100 mls/hr IVPB Q1H [facility] Rx#: [id number] Piperacillin-Tazobactam 3 75.0 62.5 37.5 .375 gm In Dextrose/Water 1 50ml.bag @ 12.5 mls/hr IVPB Q8HR [facility] Rx#: [id number] Sodium Chloride 0.9% 1, 1000 1200 400 000 ml @ 100 mls/hr IV . Q10H [facility] Rx#:[id number] Intake, IV Titration 538.75 26.313 Amount Norepinephrin 4 mg-0.9% 238.75 26.313 Ns Pmx 4 mg In 250 ml @ Titrate IV .Q0M [facility] Rx#: [id number] Potassium Chloride 10 meq 100 Lidocaine 2% Inj 10 mg In Sodium Chloride 0.9% 100 ml @ 100 mls/hr IV Q1HR [facility] Rx#:[id number] Potassium Chloride 10 meq 100 Lidocaine 2% Inj 10 mg In Sodium Chloride 0.9% 100 ml @ 100 mls/hr IV Q1HR [facility] Rx#:[id number] Sodium Chloride 0.9% 1, 100 000 ml @ 100 mls/hr IV . Q10H [facility] Rx#:[id number] Oral 50 250 Output: Urine 3017 6800 105 Other: Voiding Method Indwelling Catheter Indwelling Catheter Indwelling Catheter # Bowel Movements 1 1 - Exam Revealed a 71-year-old female in moderate respiratory distress, presently on nasal cannula at 5 L HEENT:[Neck is supple.] [No neck masses.] [No thyromegaly.] [No JVD.] Chest: [Crackles and rhonchi noted at the bases bilaterally] Cardiac Exam: [Irregular irregular rhythm Normal S1 and S2, no S3 gallop, 2/6 systolic murmur throughout the precordium] Abdomen: [Soft, nontender, no megaly, no rebound, no guarding, normal bowel sounds.] Extremities: [No clubbing, trace of bipedal edema, no cyanosis.] Neurological Exam: [No focal neurologic deficit.] - Labs CBC & Chem 7: 06/23/16 04:18 06/23/16 04:03 Labs: Abnormal Lab Results - Last 24 Hours (Table) 06/22/16 06/22/16 06/23/16 Range/Units 15:04 22:27 04:03 PT (9.0-12.0) sec Potassium 3.1 L 3.3 L (3.5-5.1) mmol/L Chloride 92 L (98-107) mmol/L Carbon Dioxide 39 H (22-30) mmol/L BUN 28 H (7-17) mg/dL Creatinine 1.08 H (0.52-1.04) mg/dL Glucose 107 H (74-99) mg/dL POC Glucose (mg/dL) 170 H (75-99) mg/dL Calcium 8.0 L (8.4-10.2) mg/dL 06/23/16 06/23/16 Range/Units 04:03 07:25 PT 14.0 H (9.0-12.0) sec Potassium (3.5-5.1) mmol/L Chloride (98-107) mmol/L Carbon Dioxide (22-30) mmol/L BUN (7-17) mg/dL Creatinine (0.52-1.04) mg/dL Glucose (74-99) mg/dL POC Glucose (mg/dL) 106 H (75-99) mg/dL Calcium (8.4-10.2) mg/dL Assessment and Plan Plan: Impression: 1 Acute hypoxic and hypercapnic respiratory failure mostly secondary to congestive heart failure mostly related to her atrial fibrillation and RVR. There could be a component of diastolic dysfunction, echocardiogram showed good LV function. Ventricular hypertrophy and mild pulmonary hypertension 2 new onset atrial fibrillation, being addressed by cardiology. Presently on oral amiodarone. 3 history of severe underlying COPD patient will remain on bronchodilators, will utilize Xopenex and Atrovent instead of albuterol. 4 type 2 diabetes 5 history of depression 6 history of GERD and Narvaez's esophagus. 7 history of osteoarthritis. 8 chronic tobacco use, and nicotine dependence. 9 intermittent episodes of hypotension requiring norepinephrine, patient was taken off norepinephrine early this morning. Recommendation: Continue present treatment plan, consider transferring the patient to a monitored bed on selective today, discussed her condition with the patient herself and her daughter at bedside. Long-term prognosis remains poor and guarded. Time with Patient: Less than 30
--- NOTE | 2016-06-23 11:44 | PN ---
INTERVAL HISTORY: Patient weaned off successfully norepinephrine this morning, but blood pressure still marginal with 89/57. The patient is asymptomatic, alert, awake, and would like to go home, but daughter showed some concern where like she said that she will go back home and smoke. She has been in bed for a long time and able to walk. PHYSICAL EXAMINATION: VITAL SIGNS: 98.2, 112, 20, 89/57 and saturation is 96% on 6 L nasal cannula. LUNGS: Diminished bilaterally. HEART: Normal S1, S2, seems to be tachycardic. ABDOMEN: Soft, no tenderness. No guarding or rebound. Positive bowel sounds in all 4 quadrants. LOWER EXTREMITIES: No edema. PSYCH: Alert, and oriented x3. SKIN: No rash. IMAGING AND LABS: CBC showed normal findings. INR 1.4. Chem-7 showed low potassium of 3.3, creatinine slightly elevated at 1.08. Glucose within acceptable range. Blood cultures are pending negative. ASSESSMENT AND PLAN: 1. Hypotension. Patient weaned off norepinephrine this morning, but still marginal. We will continue monitoring. 2. Atrial fibrillation with rapid ventricular response. Will defer management for cardiology given the complexity of the picture and patient and family would like one service to handle the heart rate issues. Heart rate is still slightly elevated, but blood pressure is marginal. We will continue monitoring and follow up with cardiology recommendation. 3. Acute hypoxic respiratory failure multifactorial. Patient on Solu-Medrol and chronic obstructive pulmonary disease pathway. We will continue with current regimen. We will continue with Zosyn. 4. Congestive heart failure. Will continue diuretics, monitor vital signs closely. 5. Diabetes, fluctuating and will wean off steroids as tolerated. 6. Anxiety, seems to be under fair control. 7. Prognosis is still guarded.
[2016-06-23 11:59] LABS: Glucose,Whole Blood 163 mg/dL (75-99)
[2016-06-23] MEDS: METOPROLOL TARTRATE 12.5 MG TAB PO SCH ×3 (12:35→21:04)
--- NOTE | 2016-06-23 13:49 | P.PN ---
Subjective Patient is sitting up in a chair. She is off norepinephrine. Atrial fibrillation at about 125 beats a minute. Breath sounds reveal bilateral rhonchi. No chest discomfort No chest pain She is currently on oral amiodarone Potassium 3.3 bicarb 39 On examination Afebrile 98.2, pulse rate between 110 and 125 beats a minute irregular, respirations 14 that pressure between 90-100 systolic Breath sounds reduced bilaterally with bilateral rhonchi heart sounds are irregular and tachycardic no obvious murmurs audible Abdomen soft nontender Impression Acute hypoxic and hypercapnic respiratory failure Congestive heart failure Atrial fibrillation with RVR Diastolic heart failure COPD exacerbation Adult-onset diabetes Chronic tobacco use Intermittent episodes of hypotension requiring norepinephrine Suggest Try metoprolol 12.5 mg either twice a day or 3 times a day for better rate control Objective - Vital Signs Vital signs: Vital Signs Temp 97.7 F 06/23/16 12:00 Pulse 101 H 06/23/16 13:00 Resp 19 06/23/16 13:00 BP 100/65 06/23/16 13:00 Pulse Ox 94 L 06/23/16 13:00 Intake & Output 06/22/16 06/23/16 06/23/16 18:59 06:59 18:59 Intake Total 1613.75 8408.812 6296.0 Output Total 3075 2865 520 Balance -1461.25 -1426.187 480.0 Weight 91.8 kg 91.2 kg Intake: IV 1075.0 1362.5 750.0 Magnesium Sulfate-D5w Pmx 100 100 1 gm In Dextrose/Water 1 100ml.bag @ 100 mls/hr IVPB Q1H [facility] Rx#: [id number] Piperacillin-Tazobactam 3 75.0 62.5 50.0 .375 gm In Dextrose/Water 1 50ml.bag @ 12.5 mls/hr IVPB Q8HR [facility] Rx#: [id number] Sodium Chloride 0.9% 1, 1000 1200 600 000 ml @ 100 mls/hr IV . Q10H [facility] Rx#:[id number] Intake, IV Titration 538.75 26.313 Amount Norepinephrin 4 mg-0.9% 238.75 26.313 Ns Pmx 4 mg In 250 ml @ Titrate IV .Q0M [facility] Rx#: [id number] Potassium Chloride 10 meq 100 Lidocaine 2% Inj 10 mg In Sodium Chloride 0.9% 100 ml @ 100 mls/hr IV Q1HR [facility] Rx#:[id number] Potassium Chloride 10 meq 100 Lidocaine 2% Inj 10 mg In Sodium Chloride 0.9% 100 ml @ 100 mls/hr IV Q1HR [facility] Rx#:[id number] Sodium Chloride 0.9% 1, 100 000 ml @ 100 mls/hr IV . Q10H [facility] Rx#:[id number] Oral 50 250 Output: Urine 3075 2865 520 Other: Voiding Method Indwelling Catheter Indwelling Catheter Indwelling Catheter # Bowel Movements 1 1 - Labs CBC & Chem 7: 06/23/16 04:18 06/23/16 11:34 Labs: Abnormal Lab Results - Last 24 Hours (Table) 06/22/16 06/22/16 06/23/16 Range/Units 15:04 22:27 04:03 PT (9.0-12.0) sec Potassium 3.1 L 3.3 L (3.5-5.1) mmol/L Chloride 92 L (98-107) mmol/L Carbon Dioxide 39 H (22-30) mmol/L BUN 28 H (7-17) mg/dL Creatinine 1.08 H (0.52-1.04) mg/dL Glucose 107 H (74-99) mg/dL POC Glucose (mg/dL) 170 H (75-99) mg/dL Calcium 8.0 L (8.4-10.2) mg/dL 06/23/16 06/23/16 06/23/16 Range/Units 04:03 07:25 11:34 PT 14.0 H (9.0-12.0) sec Potassium 2.9 L* (3.5-5.1) mmol/L Chloride (98-107) mmol/L Carbon Dioxide (22-30) mmol/L BUN (7-17) mg/dL Creatinine (0.52-1.04) mg/dL Glucose (74-99) mg/dL POC Glucose (mg/dL) 106 H (75-99) mg/dL Calcium (8.4-10.2) mg/dL 06/23/16 Range/Units 11:57 PT (9.0-12.0) sec Potassium (3.5-5.1) mmol/L Chloride (98-107) mmol/L Carbon Dioxide (22-30) mmol/L BUN (7-17) mg/dL Creatinine (0.52-1.04) mg/dL Glucose (74-99) mg/dL POC Glucose (mg/dL) 163 H (75-99) mg/dL Calcium (8.4-10.2) mg/dL
[2016-06-23 14:19] LABS: Appearance,Urine Clear (Clear); Bilirubin,Urine Negative (Negative); Glucose,Urine (UA) Negative (Negative); Ketones,Urine Negative (Negative); Leukocyte Esterase,Urine Negative (Negative); Nitrite,Urine Negative (Negative); Protein,Urine Negative (Negative); Specific Gravity,Urine 1.013 (1.001-1.035); UA Billing (MACRO vs. MICRO) CHEM; Urobilinogen,Urine <2.0 mg/dL (<2.0)
[2016-06-23 16:52] LABS: Glucose,Whole Blood 206 mg/dL (75-99)
[2016-06-23] MEDS ORDERED: POTASSIUM CHLORIDE ER 20 MEQ TAB.ER PO SCH (18:00)
[2016-06-23] MEDS ORDERED: ZOLPIDEM 5 MG TAB PO PRN (18:21)
[2016-06-23] MEDS ORDERED: SENNOSIDES 8.6 MG TAB PO PRN (18:22)
[2016-06-23] MEDS: DOCUSATE 100 MG CAP PO SCH (20:45)
[2016-06-23 21:23] LABS: Glucose,Whole Blood 144 mg/dL (75-99)
[2016-06-24] MEDS: methylPREDNISolone SOD SUCCI 40 MG/ML 1 ML VIAL IV SCH ×4 (00:03→22:01)
[2016-06-24] MEDS: PIPERACILLIN-TAZOBACTAM 3.375 GM in DEXTROSE/WATER 1 50ML.BAG IVPB SCH ×4 (00:06→23:05)
[2016-06-24] MEDS: SODIUM CHLORIDE 0.9% 1,000 ML IV SCH ×3 (00:06→22:01)
[2016-06-24 06:17] LABS: INR 1.4 (<1.1); Prothrombin Time 13.4 sec (9.0-12.0)
[2016-06-24 06:20] LABS: Glucose,Whole Blood 133 mg/dL (75-99)
[2016-06-24 06:26] LABS: Anion Gap 10 mmol/L; Blood Urea Nitrogen 28 mg/dL (7-17); Carbon Dioxide 32 mmol/L (22-30); Chloride 98 mmol/L (98-107); Glucose 135 mg/dL (74-99); Magnesium 2.2 mg/dL (1.6-2.3); Non-African American GFR(MDRD) >60 (>60 ml/min/1.73 sqM); Phosphorous 3.2 mg/dL (2.5-4.5); Potassium 3.9 mmol/L (3.5-5.1); Sodium 140 mmol/L (137-145)
[2016-06-24] MEDS: INSULIN LISPRO (humaLOG) 300 UNIT/3 ML VIAL SQ SCH ×3 (06:50→16:27)
[2016-06-24] MEDS: glipiZIDE 5 MG TAB PO SCH ×2 (06:50→16:27)
[2016-06-24] MEDS: PANTOPRAZOLE 40 MG TABLET PO SCH (06:50)
[2016-06-24] MEDS: INSULIN NPH 300 UNIT/3 ML VIAL SQ SCH ×2 (09:31→22:01)
[2016-06-24] MEDS: NICOTINE 21MG/24HR PATCH TRANSDERM SCH (09:31)
[2016-06-24] MEDS: CITALOPRAM HYDROBROMIDE 20 MG TAB PO SCH (09:32)
[2016-06-24] MEDS: DOCUSATE 100 MG CAP PO SCH ×2 (09:32→22:00)
[2016-06-24] MEDS: APIXABAN 5 MG TAB PO SCH ×2 (09:32→22:00)
[2016-06-24] MEDS: AMIODARONE 200 MG TAB PO SCH ×2 (09:32→22:00)
[2016-06-24] MEDS: FUROSEMIDE 40 MG TAB PO SCH ×2 (09:33→15:28)
[2016-06-24] MEDS: METOPROLOL TARTRATE 12.5 MG TAB PO SCH ×3 (09:33→22:01)
[2016-06-24] MEDS: HYDROcodone/APAP 10-325MG 1 EACH TAB PO PRN ×2 (10:04→22:07)
--- NOTE | 2016-06-24 10:36 | P.PN ---
Subjective Principal diagnosis: Acute hypoxic and hypercapnic respiratory failure secondary to congestive heart failure secondary to atrial fibrillation and RVR, diastolic dysfunction, and underlying COPD. This is a 71-year-old female with history of multiple medical problems including coronary artery disease, type 2 diabetes, COPD, heavy smoker, history of Narvaez esophagus, patient was initially seen by Dr. Chen with increased shortness of breath, and difficulty breathing. Her symptoms have been going on for about a week. She was also complaining of fatigue, conversational dyspnea, and palpitations. In the ER, patient was found to be in pulmonary edema, she was also noted to be in atrial fibrillation with RVR, and this is supposedly new onset A. fib. Heart rate was in the 140 range, patient was noted to be bronchospastic, she was given diuretics in the ER, and she was placed on BiPAP. CT of the chest showed evidence of pulmonary edema, groundglass infiltrates were noted bilaterally and bilateral pleural effusions. There was also evidence of pericardial effusion, transverse measurement of 1.4 cm, and some nonspecific mediastinal adenopathy noted. And not felt to be clinical seek significant. At any rate patient was placed on BiPAP, transferred to the ICU, placed on diuretics, bronchodilators, steroids, and I was asked to see her on consultation. Patient was reevaluated today on 06/21/2016, clinically she is feeling better, chest x-ray continues to show mild interstitial edema improved compared to last chest x-ray. Mild pulmonary vascular congestion is noted, and some scattered senescent parenchymal changes are also noted labs were reviewed, WBC count is 14.8 hemoglobin is 12.3 BUN is 25 creatinine is 1.16. Patient was reevaluated today on 06/22/2016, remains in the ICU, she was requiring norepinephrine for low blood pressure until early this morning which was discontinued in the last hour. Her heart rate seems to be better controlled , she remains in atrial fibrillation and she is in the 100-120 range. Patient was placed on oral amiodarone. Remains on diuretics, chest x-ray is showing some improvement in her heart failure. But her congestive heart failure is not completely resolved. Labs showed normal CBC normal basic metabolic profile. BUN is 26 creatinine is 1.14 Reevaluated today on 06/23/2016, she has been off norepinephrine for the last a few hours. Heart rate remains in A. fib and RVR, that is being addressed by cardiology. Last chest x-ray showed improvement in the congestive heart failure. But not completely resolved. Patient continues to have intermittent episodes of shortness of breath, no cough no wheezing no chest pain no fever no chills no hemoptysis no nausea no vomiting no abdominal pain.EBC is relatively normal. Electrolytes are relatively normal however potassium is 3.3 bicarb is 39. Reevaluated today on 06/24/2016, patient is now on a monitored bed on selective, doing better, hemodynamically stable, continues to have some coughing hacking and wheezing. No fever no chills no hemoptysis. Her last chest x-ray was 2 days ago, I will recommend a follow-up chest x-ray in a.m., in the meantime I will also recommend social worker clinical to evaluate for possible discharge planning. Objective - Vital Signs Vital signs: Vital Signs Temp 97.8 F 06/24/16 09:00 Pulse 115 H 06/24/16 09:00 Resp 16 06/24/16 09:00 BP 107/69 06/24/16 09:00 Pulse Ox 94 L 06/24/16 09:00 Intake & Output 06/23/16 06/24/16 06/24/16 18:59 06:59 18:59 Intake Total 2287.5 1112.5 Output Total 1435 1775 Balance 852.5 -662.5 Weight 84.6 kg Intake: IV 1287.5 1112.5 Magnesium Sulfate-D5w Pmx 100 1 gm In Dextrose/Water 1 100ml.bag @ 100 mls/hr IVPB Q1H [facility] Rx#: [id number] Piperacillin-Tazobactam 3 87.5 12.5 .375 gm In Dextrose/Water 1 50ml.bag @ 12.5 mls/hr IVPB Q8HR WILL[facility] Rx#: [id number] Sodium Chloride 0.9% 1, 1100 1100 000 ml @ 100 mls/hr IV . Q10H WILL[facility] Rx#:[id number] Oral 1000 Output: Urine 1435 1775 Other: Voiding Method Indwelling Catheter Indwelling Catheter Indwelling Catheter - Exam Revealed a 71-year-old female in moderate respiratory distress, presently on nasal cannula at 5 L HEENT:[Neck is supple.] [No neck masses.] [No thyromegaly.] [No JVD.] Chest: [Crackles and rhonchi noted at the bases bilaterally] Cardiac Exam: [Irregular irregular rhythm Normal S1 and S2, no S3 gallop, 2/6 systolic murmur throughout the precordium] Abdomen: [Soft, nontender, no megaly, no rebound, no guarding, normal bowel sounds.] Extremities: [No clubbing, trace of bipedal edema, no cyanosis.] Neurological Exam: [No focal neurologic deficit.] - Labs CBC & Chem 7: 06/23/16 04:18 06/24/16 05:42 Labs: Abnormal Lab Results - Last 24 Hours (Table) 06/23/16 06/23/16 06/23/16 Range/Units 11:34 11:57 16:49 PT (9.0-12.0) sec Potassium 2.9 L* (3.5-5.1) mmol/L Carbon Dioxide (22-30) mmol/L BUN (7-17) mg/dL Glucose (74-99) mg/dL POC Glucose (mg/dL) 163 H 206 H (75-99) mg/dL Calcium (8.4-10.2) mg/dL 06/23/16 06/24/16 06/24/16 Range/Units 21:20 05:42 05:42 PT 13.4 H (9.0-12.0) sec Potassium (3.5-5.1) mmol/L Carbon Dioxide 32 H (22-30) mmol/L BUN 28 H (7-17) mg/dL Glucose 135 H (74-99) mg/dL POC Glucose (mg/dL) 144 H (75-99) mg/dL Calcium 8.0 L (8.4-10.2) mg/dL 06/24/16 Range/Units 06:18 PT (9.0-12.0) sec Potassium (3.5-5.1) mmol/L Carbon Dioxide (22-30) mmol/L BUN (7-17) mg/dL Glucose (74-99) mg/dL POC Glucose (mg/dL) 133 H (75-99) mg/dL Calcium (8.4-10.2) mg/dL Microbiology - Last 24 Hours (Table) 06/23/16 13:35 Urine Culture - Preliminary Urine,Catheterized Assessment and Plan Plan: Impression: 1 Acute hypoxic and hypercapnic respiratory failure mostly secondary to congestive heart failure mostly related to her atrial fibrillation and RVR. There could be a component of diastolic dysfunction, echocardiogram showed good LV function. Ventricular hypertrophy and mild pulmonary hypertension 2 new onset atrial fibrillation, being addressed by cardiology. Presently on oral amiodarone. 3 history of severe underlying COPD patient will remain on bronchodilators, will utilize Xopenex and Atrovent instead of albuterol. 4 type 2 diabetes 5 history of depression 6 history of GERD and Narvaez's esophagus. 7 history of osteoarthritis. 8 chronic tobacco use, and nicotine dependence. 9 intermittent episodes of hypotension requiring norepinephrine, patient was taken off norepinephrine 2 days ago Recommendation: Continue present treatment plan, social worker clinical and bilingual case manager to evaluate for possible discharge planning to [facility]. Patient will likely benefit from rehab. When approached about this plan, patient seems to be extremely reluctant to consider any rehab facility. She would like to be discharged home. Would have repeat chest x-ray in a.m. Continue bronchodilators and diuretics. Time with Patient: Less than 30
[2016-06-24] MEDS: ALBUTEROL NEBULIZED 2.5 MG/3 ML INHALATION PRN ×2 (11:51→21:00)
[2016-06-24 12:04] LABS: Glucose,Whole Blood 128 mg/dL (75-99)
--- NOTE | 2016-06-24 12:34 | PN ---
DATE OF SERVICE: 06/24/2016 INTERVAL HISTORY: The patient is sleepy this morning and was having difficulty sleeping last night and I ordered Ambien and the patient is arousable, but still lethargic. No confusion at this point. PHYSICAL EXAMINATION: VITAL SIGNS: 97.2, heart rate fluctuating between 110 and 120, blood pressure this morning 119/62 and saturation is 96% on 6 liters nasal cannula. LUNGS: Diminished bilaterally. HEART: Normal S1, S2. ABDOMEN: Soft, no tenderness, positive bowel sounds in all 4 quadrants. EXTREMITIES: Lower extremity no edema. PSYCH: As above. SKIN: No rash. Imaging and labs: PT, INR or normal. Chem-7 showed normal findings. Glucose fluctuating between 133 and 144. Urine culture is still pending, negative. Blood cultures pending, negative. ASSESSMENT AND PLAN: 1. Hypotension, seems to be improved. Patient weaned off the norepinephrine successfully and transferred to [facility] care. The patient seems to be hemodynamically stable this morning, except for the tachycardia. 2. Atrial fibrillation with rapid ventricular response. Patient's heart rate is still fluctuating between 110 and 120 but blood pressure is marginal and we would like to follow up with cardiology recommendations regarding heart rate management. 3. Acute hypoxic respiratory failure, still requiring high flow oxygen. I discussed with the nursing staff to wean her off 6 liters slowly and gradually and goal is oxygen above 88%. 4. Congestive heart failure. Continue current diuretics and monitor vital signs closely, monitor input and output and daily weights. 5. Diabetes type 2. We will continue insulin sliding scale seems to be under fair control. 6. Anxiety, fairly controlled. 7. Prognosis is still guarded.
[2016-06-24 16:31] LABS: Glucose,Whole Blood 161 mg/dL (75-99)
[2016-06-24] MEDS: BUDESONIDE 1 MG/2 ML NEBU INHALATION SCH (21:00)
[2016-06-24 21:08] LABS: Glucose,Whole Blood 73 mg/dL (75-99)
[2016-06-25 06:01] LABS: INR 1.4 (<1.1); Prothrombin Time 13.4 sec (9.0-12.0)
[2016-06-25 06:25] LABS: Glucose,Whole Blood 116 mg/dL (75-99)
[2016-06-25] MEDS: HYDROcodone/APAP 10-325MG 1 EACH TAB PO PRN (06:53)
[2016-06-25] MEDS: glipiZIDE 5 MG TAB PO SCH ×2 (06:54→17:06)
[2016-06-25] MEDS: PANTOPRAZOLE 40 MG TABLET PO SCH (06:55)
[2016-06-25] MEDS: INSULIN LISPRO (humaLOG) 300 UNIT/3 ML VIAL SQ SCH ×3 (06:55→17:04)
[2016-06-25] MEDS: BUDESONIDE 1 MG/2 ML NEBU INHALATION SCH ×2 (08:30→20:23)
[2016-06-25] MEDS: methylPREDNISolone SOD SUCCI 40 MG/ML 1 ML VIAL IV SCH (08:52)
[2016-06-25] MEDS: SODIUM CHLORIDE 0.9% 1,000 ML IV SCH ×2 (08:52→14:39)
[2016-06-25] MEDS: INSULIN NPH 300 UNIT/3 ML VIAL SQ SCH ×2 (08:53→20:14)
[2016-06-25] MEDS: PIPERACILLIN-TAZOBACTAM 3.375 GM in DEXTROSE/WATER 1 50ML.BAG IVPB SCH ×3 (08:54→23:36)
[2016-06-25] MEDS: DOCUSATE 100 MG CAP PO SCH ×2 (08:54→20:14)
[2016-06-25] MEDS: AMIODARONE 200 MG TAB PO SCH ×2 (08:54→20:14)
[2016-06-25] MEDS: METOPROLOL TARTRATE 12.5 MG TAB PO SCH (08:54)
[2016-06-25] MEDS: FUROSEMIDE 40 MG TAB PO SCH ×2 (08:54→14:39)
[2016-06-25] MEDS: APIXABAN 5 MG TAB PO SCH ×2 (08:54→20:14)
[2016-06-25] MEDS: CITALOPRAM HYDROBROMIDE 20 MG TAB PO SCH (08:54)
[2016-06-25] MEDS: NICOTINE 21MG/24HR PATCH TRANSDERM SCH (08:54)
[2016-06-25] MEDS: ALPRAZolam 0.25 MG TAB PO PRN ×2 (08:54→20:33)
--- NOTE | 2016-06-25 11:33 | P.PN ---
Subjective Progress note dated 06/25/2016 71-year-old female who was admitted from the office a couple days back. She came with hypoxemic and hypercapnic respiratory failure, likely related to underlying CHF atrial fibrillation and RVR. The patient's chest x-ray today still shows evidence of bilateral heart failure. Significant cephalization bilateral effusions and interstitial engorgement. She also has a history of new -onset atrial fibrillation being addressed by cardiology as well as a history of severe underlying COPD. Additional history includes diabetes depression GERD and Narvaez's esophagus. She has a history of chronic tobacco use. Actually when she was in the office today, as she was can be wheeled over to the emergency room, she wanted to smoke on the way over. Today she is a bit confused. May relate to the underlying Xanax use. We'll look at her medications and discontinue or reduce doses of those which might be contributing to her poor mental status. Objective - Vital Signs Vital signs: Vital Signs Temp 98.2 F 06/25/16 08:00 Pulse 110 H 06/25/16 08:00 Resp 20 06/25/16 08:00 BP 126/90 06/25/16 08:00 Pulse Ox 93 L 06/25/16 08:00 Intake & Output 06/24/16 06/25/16 06/25/16 18:59 06:59 18:59 Intake Total 1650 50 Output Total 1200 2400 Balance 450 -2350 Weight 84.6 kg Intake: IV 850 50 Piperacillin-Tazobactam 3 50 50 .375 gm In Dextrose/Water 1 50ml.bag @ 12.5 mls/hr IVPB Q8HR [facility]IAM Rx#: [id number] Sodium Chloride 0.9% 1, 800 000 ml @ 100 mls/hr IV . Q10H WILLIAM Rx#:[id number] Oral 800 Output: Urine 1200 2400 Other: Voiding Method Indwelling Catheter Indwelling Catheter Indwelling Catheter # Bowel Movements 1 0 - Exam No acute distress, oriented 3. HEENT examination is grossly unremarkable. Mucous membranes are moist. No oral lesions. Neck supple. Full range of motion. No adenopathy or thyromegaly. No distinct neck vein distention is noted. Cardiovascular examination reveals a regular rhythm rate. Heart rate about 100. S1-S2 normal. There is a grade 2/6 systolic murmur. No S3-S4. Lungs reveal bibasilar crackles. Breath sounds are diminished throughout. No rhonchi. No wheezes. Abdomen soft. Bowel sounds are heard. Extremities are intact. No cyanosis clubbing or edema. Neurologic examination is abnormal. She's very confused and disoriented. This is apparently new for her. This started yesterday according to her daughter. Skin examination is without lesion. - Labs CBC & Chem 7: 06/23/16 04:18 06/24/16 05:42 Labs: Abnormal Lab Results - Last 24 Hours (Table) 06/24/16 06/24/16 06/24/16 Range/Units 11:52 16:26 21:06 PT (9.0-12.0) sec POC Glucose (mg/dL) 128 H 161 H 73 L (75-99) mg/dL 06/25/16 06/25/16 Range/Units 05:38 06:17 PT 13.4 H (9.0-12.0) sec POC Glucose (mg/dL) 116 H (75-99) mg/dL Microbiology - Last 24 Hours (Table) 06/23/16 13:35 Urine Culture - Final Urine,Catheterized Assessment and Plan (1) Acute pulmonary edema Status: Acute (2) Atrial fibrillation with RVR Status: Acute (3) COPD (chronic obstructive pulmonary disease) Status: Acute Plan: Plan dated 06/25/2016 The patient has been seen by the primary hospitalist. The planning on possible discharge to a nursing facility or rehab facility of some sore. She continues to be on appropriate medications. A bit confused. I review her medication list. We may discontinue some medications based maybe having an abnormal effect on her mental status. Additional recommendations suggestions forthcoming. Prognosis is very guarded. Time with Patient: Less than 30
[2016-06-25 12:01] LABS: Glucose,Whole Blood 84 mg/dL (75-99)
--- NOTE | 2016-06-25 12:09 | XR ---
EXAMINATION TYPE: XR chest 2V DATE OF EXAM: 06/25/2016 10:57 AM COMPARISON: 06/22/2016 HISTORY: 71-year-old female CHF, shortness of breath TECHNIQUE: Frontal and lateral views FINDINGS: Heart is mild to moderately enlarged. Perihilar with interstitial opacities. Small pleural effusions with bibasilar opacities as well. Overall findings worsened from 06/22/2016. IMPRESSION: CHF with interval worsening, now with interstitial pulmonary edema. Small pleural effusions with [place] atelectasis and/or consolidation.
[2016-06-25] MEDS: METOPROLOL TARTRATE 25 MG TAB PO SCH ×2 (13:26→20:30)
--- NOTE | 2016-06-25 13:27 | P.PN ---
Subjective This is a pleasant 71-year-old lady patient of Dr. Raphael and Dr. Chen. She has underlying history off CAD type 2 diabetes mellitus, hypertension, COPD, current heavy tobacco use, chronic rhonchi place, Narvaez's esophagus admitted emergency room secondary to increasing difficulty despite initial treatments at home, she was sent in from Dr. Chen's office secondary to increasing shortness of breath and difficulty in breathing, patient has had problems for about one week, she has increasingly shortness of breath breathing fatigue , conversational dyspnea, palpitations and fast heartbeat. Patient denies any recent fever or chills, patient denies any lower extremity edema or leg pain, patient denies any syncopal event or focal neurologic deficits. Patient denies any falls or recent trauma In the emergency room she was found to be in atrial fibrillation new onset, rapid ventricular rate, heart rate in the 140s, she was very bronchospastic and hypoxemic, she required nebulized treatments without relief, they have started BiPAP treatments and was transferred to ICU. O2 sats at 80%, CTA of the chest was done as a d-dimer was elevated, CT ruled out pulmonary emboli it did show congestive heart failure, additional findings on CAT scan showed scattered groundglass infiltrates with small bilateral pleural effusion she was started on IV Cardizem for atrial fibrillation with IV anticoagulation and IV Lasix. Consult was made with cardiology and Dr. hCen pulmonary medicine and depot agent. 06/20: Patient remains in the intensive care unit. BiPAP is at the bedside she is currently on nasal cannula. She is continued on heparin drip and Cardizem drip. Echocardiogram reveals mild concentric left ventricle hypertrophy, EF 50- 55%, mild aortic stenosis, mild mitral regurgitation, mild tricuspid regurgitation, mild pulmonary hypertension. 06/21: Patient became hypotensive with Lopressor and verapamil. She is on norepinephrine. Repeat chest x-ray is stable. She is continued on heparin drip and amiodarone drip was started early this morning. Heart rate is in the 120s. Patient is complaining of restless leg syndrome for which Requip has been added. Patient also is requesting more frequent Xanax for anxiety which was increased to twice daily. Daughter states the patient has intention to go home and start smoking again. Anticipate the patient will need subacute rehab at the time of discharge. 4/14: Patient remains in intensive care unit and has been on norepinephrine which was discharged off this morning. She remains in atrial fibrillation rate in the 100-120 she is currently on oral amiodarone. White count is down to 10.9. Renal function stable. She is currently on oral Lasix 06/25: Over the weekend, patient remained off norepinephrine. She was in A. fib with RVR. Cardiology increase metoprolol to 12.5 mg 3 times a day and oral amiodarone is at 200 mg twice daily. Chest x-ray showed improvement. She was transferred to the selective care unit. She continued to have coughing and wheezing. No fever or chills. She is continued on Solu-Medrol 40 mg every 8 hours which we will switch over to oral prednisone and Lasix is oral. Patient is on eliquis for anticoagulation. She is confused today she is determined to return home versus going to ECF. Social work is following. Garrett catheter will be discontinued. Objective - Vital Signs Vital signs: Vital Signs Temp 97.6 F 06/24/16 15:39 Pulse 99 06/25/16 07:23 Resp 19 06/25/16 07:23 BP 133/111 06/25/16 07:23 Pulse Ox 91 L 06/25/16 07:23 Intake & Output 06/24/16 06/25/16 06/25/16 18:59 06:59 18:59 Intake Total 1650 50 Output Total 1200 2400 Balance 450 -2350 Intake: IV 850 50 Piperacillin-Tazobactam 3 50 50 .375 gm In Dextrose/Water 1 50ml.bag @ 12.5 mls/hr IVPB Q8HR WILLIAM Rx#: [id number] Sodium Chloride 0.9% 1, 800 000 ml @ 100 mls/hr IV . Q10H WILLIAM Rx#:[id number] Oral 800 Output: Urine 1200 2400 Other: Voiding Method Indwelling Catheter Indwelling Catheter # Bowel Movements 1 - Exam General appearance: cooperative, mild distress, no acute distress, obese - EENT Eyes: anicteric sclerae, EOMI, PERRLA, dentition normal, normal appearance ENT: hard of hearing, NA/AT, normal oropharynx - Neck Neck: normal ROM - Respiratory Respiratory: bilateral: diminished, wheezing, prolonged expiration - Cardiovascular Rhythm: irregularly irregular (Tachycardic heart rate 130s) Heart sounds: normal: S1, S2 Abnormal Heart Sounds: systolic murmur, no diastolic murmur, no rub, no S3 Gallop, no S4 Gallop, no click, no other - Gastrointestinal General gastrointestinal: normal bowel sounds, soft - Integumentary Integumentary: normal, normal turgor - Neurologic Neurologic: CNII-XII intact - Musculoskeletal Musculoskeletal: gait normal, strength equal bilaterally - Psychiatric Psychiatric: A&O x's 3, appropriate affect - Labs CBC & Chem 7: 06/23/16 04:18 06/24/16 05:42 Labs: Abnormal Lab Results - Last 24 Hours (Table) 06/24/16 06/24/16 06/24/16 Range/Units 11:52 16:26 21:06 PT (9.0-12.0) sec POC Glucose (mg/dL) 128 H 161 H 73 L (75-99) mg/dL 06/25/16 06/25/16 Range/Units 05:38 06:17 PT 13.4 H (9.0-12.0) sec POC Glucose (mg/dL) 116 H (75-99) mg/dL Microbiology - Last 24 Hours (Table) 06/23/16 13:35 Urine Culture - Final Urine,Catheterized Assessment and Plan Plan: 1. Acute hypoxic respiratory failure due to acute diastolic heart failure from atrial fibrillation new onset, pulmonary edema and severe COPD exacerbation. She remains in intensive care unit. Continue amiodarone, Lasix oral, eliquis, Solu-Medrol switched to oral prednisone, Zosyn. 2. Acute diastolic CHF secondary to atrial fibrillation. Continue metoprolol, amiodarone, eliquis, Lasix 3. Metabolic encephalopathy secondary to hypoxemic respiratory failure, need to rule out sepsis with SIRS, urinalysis will obtained, chest x-ray and CTA failed to reveal any pneumonic infiltrates 2. New onset atrial fibrillation. Continue amiodarone and heparin drip. Cardiology consult appreciated. 3. Diabetes mellitus type 2 with hyperglycemia secondary to steroids. Continue NPH 10 units twice daily, Humalog scale, glipizide 5 mg twice daily. 4. GERD on maintenance omeprazole 40 mg daily 5. Anxiety generalized and recurrent depression on citalopram 40 mg daily 6. Chronic osteoarthritis pain to the bilateral knees. [place] resumed. 7. Chronic tobacco use. Continue nicotine patch. 8. DVT prophylaxis with IV heparin secondary to atrial fibrillatiom. 9. GI prophylaxis on maintenance omeprazole 10. Hypotension due to combination of verapamil and Lopressor requiring vasopressors. 11. Chronic kidney disease stage II Prognosis guarded CODE STATUS no code Discharge plan: To be determined, most likely subacute rehab. Impression and plan of care have been directed as dictated by the signing physician. Rosalba Mooney nurse practitioner acting as scribe for signing physician. Time with Patient: Greater than 30
--- NOTE | 2016-06-25 14:41 | P.PN ---
Subjective Principal diagnosis: Shortness of breath This is a 71-year-old female with history of diabetes, hypertension, COPD, chronic tobacco use, who presented to the hospital with symptoms of progressively worsening shortness of breath. Patient also is noted to be in atrial fibrillation, which is the reason cardiology consultation was requested. Patient was also initially quite hypotensive. Patient is currently on oral amiodarone, and metoprolol tartrate. Heart rate this morning 120s. We will increase her dose of metoprolol tartrate, continue her other medications. Objective - Vital Signs Vital signs: Vital Signs Temp 98.8 F 06/25/16 12:00 Pulse 114 H 06/25/16 12:00 Resp 20 06/25/16 12:00 BP 129/81 06/25/16 12:00 Pulse Ox 95 06/25/16 12:00 Intake & Output 06/24/16 06/25/16 06/25/16 18:59 06:59 18:59 Intake Total 1650 50 700 Output Total 1200 2400 2800 Balance 450 -2350 -2100 Weight 84.6 kg Intake: IV 850 50 450 Piperacillin-Tazobactam 3 50 50 50 .375 gm In Dextrose/Water 1 50ml.bag @ 12.5 mls/hr IVPB Q8HR [facility]IAM Rx#: [id number] Sodium Chloride 0.9% 1, 800 400 000 ml @ 100 mls/hr IV . Q10H WILLIAM Rx#:[id number] Oral 800 250 Output: Urine 1200 2400 2800 Other: Voiding Method Indwelling Catheter Indwelling Catheter Indwelling Catheter # Bowel Movements 1 0 - Exam PHYSICAL EXAMINATION: HEENT: Head is atraumatic, normocephalic. Pupils equal, round. Neck is supple. There is no elevated jugular venous pressure. HEART EXAMINATION: Heart S1 and S2 irregularly irregular CHEST EXAMINATION: Lungs reveal expiratory wheezes ABDOMEN: Soft, nontender. Bowel sounds are heard. No organomegaly noted. EXTREMITIES: 2+ peripheral pulses with no evidence of peripheral edema and no calf tenderness noted. NEUROLOGIC patient is awake, alert and oriented -3. . - Labs CBC & Chem 7: 06/23/16 04:18 06/24/16 05:42 Labs: Abnormal Lab Results - Last 24 Hours (Table) 06/24/16 06/24/16 06/25/16 Range/Units 16:26 21:06 05:38 PT 13.4 H (9.0-12.0) sec POC Glucose (mg/dL) 161 H 73 L (75-99) mg/dL 06/25/16 Range/Units 06:17 PT (9.0-12.0) sec POC Glucose (mg/dL) 116 H (75-99) mg/dL Microbiology - Last 24 Hours (Table) 06/23/16 13:35 Urine Culture - Final Urine,Catheterized Assessment and Plan (1) Acute respiratory failure with hypoxia Status: Acute (2) Diastolic congestive heart failure Status: Acute (3) Hypertension Status: Acute (4) Atrial fibrillation, chronic Status: Acute (5) COPD exacerbation Status: Acute (6) Nicotine dependence Status: Acute Plan: From cardiology's perspective, we'll increase the current dose of beta sulma to 25 mg one tablet by mouth twice a day, Continue you other current medications including amiodarone 200 mg one tablet by mouth twice a day, Eliquis 5 mg by mouth twice a day.. DNP note has been reviewed, I agree with a documented findings and plan of care. Patient was seen and examined.
[2016-06-25 16:48] LABS: Glucose,Whole Blood 66 mg/dL (75-99)
[2016-06-25] MEDS: ALBUTEROL NEBULIZED 2.5 MG/3 ML INHALATION PRN ×2 (16:51→20:23)
[2016-06-25 20:37] LABS: Glucose,Whole Blood 153 mg/dL (75-99)
[2016-06-26 06:23] LABS: Glucose,Whole Blood 53 mg/dL (75-99)
[2016-06-26] MEDS: INSULIN LISPRO (humaLOG) 300 UNIT/3 ML VIAL SQ SCH ×2 (06:39→12:36)
[2016-06-26] MEDS: PANTOPRAZOLE 40 MG TABLET PO SCH (06:39)
[2016-06-26] MEDS: SODIUM CHLORIDE 0.9% 1,000 ML IV SCH ×2 (06:41→12:36)
[2016-06-26 06:53] LABS: INR 1.2 (<1.1); Prothrombin Time 12.3 sec (9.0-12.0)
[2016-06-26 07:19] LABS: Glucose,Whole Blood 101 mg/dL (75-99)
[2016-06-26] MEDS ORDERED: predniSONE 20 MG TAB PO SCH (09:00)
[2016-06-26] MEDS: PIPERACILLIN-TAZOBACTAM 3.375 GM in DEXTROSE/WATER 1 50ML.BAG IVPB SCH (09:02)
[2016-06-26] MEDS: APIXABAN 5 MG TAB PO SCH (09:09)
[2016-06-26] MEDS: AMIODARONE 200 MG TAB PO SCH (09:09)
[2016-06-26] MEDS: CITALOPRAM HYDROBROMIDE 20 MG TAB PO SCH (09:10)
[2016-06-26] MEDS: FUROSEMIDE 40 MG TAB PO SCH (09:11)
[2016-06-26] MEDS: DOCUSATE 100 MG CAP PO SCH (09:11)
[2016-06-26] MEDS: METOPROLOL TARTRATE 25 MG TAB PO SCH (09:12)
[2016-06-26] MEDS: INSULIN NPH 300 UNIT/3 ML VIAL SQ SCH (09:15)
[2016-06-26] MEDS ORDERED: HYDROcodone/APAP 5-325MG 1 EACH TAB PO PRN (09:42)
[2016-06-26] MEDS: NICOTINE 21MG/24HR PATCH TRANSDERM SCH (10:00)
[2016-06-26] MEDS: glipiZIDE 5 MG TAB PO SCH (10:00)
[2016-06-26 11:41] VITALS: BP 104/66
[2016-06-26] MEDS: BUDESONIDE 1 MG/2 ML NEBU INHALATION SCH (11:47)
[2016-06-26 12:09] LABS: Glucose,Whole Blood 93 mg/dL (75-99)
--- NOTE | 2016-06-26 12:45 | P.DS ---
Providers Date of admission: 06/19/16 14:36 Expected date of discharge: 06/26/16 Attending physician: Coby Escalera Primary care physician: [facility] Course: This is a pleasant 71-year-old lady patient of Dr. Raphael and Dr. Chen. She has underlying history off CAD type 2 diabetes mellitus, hypertension, COPD, current heavy tobacco use, chronic rhonchi place, Narvaez's esophagus admitted emergency room secondary to increasing difficulty despite initial treatments at home, she was sent in from Dr. Chen's office secondary to increasing shortness of breath and difficulty in breathing, patient has had problems for about one week, she has increasingly shortness of breath breathing fatigue , conversational dyspnea, palpitations and fast heartbeat. Patient denies any recent fever or chills, patient denies any lower extremity edema or leg pain, patient denies any syncopal event or focal neurologic deficits. Patient denies any falls or recent trauma In the emergency room she was found to be in atrial fibrillation new onset, rapid ventricular rate, heart rate in the 140s, she was very bronchospastic and hypoxemic, she required nebulized treatments without relief, they have started BiPAP treatments and was transferred to ICU. O2 sats at 80%, CTA of the chest was done as a d-dimer was elevated, CT ruled out pulmonary emboli it did show congestive heart failure, additional findings on CAT scan showed scattered groundglass infiltrates with small bilateral pleural effusion she was started on IV Cardizem for atrial fibrillation with IV anticoagulation and IV Lasix. 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 06/20: Patient remains in the intensive care unit. BiPAP is at the bedside she is currently on nasal cannula. She is continued on heparin drip and Cardizem drip. Echocardiogram reveals mild concentric left ventricle hypertrophy, EF 50- 55%, mild aortic stenosis, mild mitral regurgitation, mild tricuspid regurgitation, mild pulmonary hypertension. 06/21: Patient became hypotensive with Lopressor and verapamil. She is on norepinephrine. Repeat chest x-ray is stable. She is continued on heparin drip and amiodarone drip was started early this morning. Heart rate is in the 120s. Patient is complaining of restless leg syndrome for which Requip has been added. Patient also is requesting more frequent Xanax for anxiety which was increased to twice daily. Daughter states the patient has intention to go home and start smoking again. Anticipate the patient will need subacute rehab at the time of discharge. 06/22: Patient remains in intensive care unit and has been on norepinephrine which was discharged off this morning. She remains in atrial fibrillation rate in the 100-120 she is currently on oral amiodarone. White count is down to 10.9. Renal function stable. She is currently on oral Lasix 06/25: Over the weekend, patient remained off norepinephrine. She was in A. fib with RVR. Cardiology increase metoprolol to 12.5 mg 3 times a day and oral amiodarone is at 200 mg twice daily. Chest x-ray showed improvement. She was transferred to the selective care unit. She continued to have coughing and wheezing. No fever or chills. She is continued on Solu-Medrol 40 mg every 8 hours which we will switch over to oral prednisone and Lasix is oral. Patient is on eliquis for anticoagulation. She is confused today she is determined to return home versus going to [facility]. Social work is following. Garrett catheter will be discontinued. 06/26: Cardiology has increased metoprolol to [address] Denton discontinued her Ambien and [place] 10 and shins mental status is much improved and now she is demanding on [place] which will be resumed at 5 twice daily as needed. Patient's O2 need has decreased and she has been able to get up to the commode chair. She is followed by physical therapy with recommendations for subacute rehab and we will discharge her to [facility] today in stable condition. Discharge diagnoses: 1. Acute hypoxic respiratory failure due to acute diastolic heart failure from atrial fibrillation new onset, pulmonary edema and severe COPD exacerbation. 2. Acute diastolic CHF secondary to atrial fibrillation. 3. Metabolic encephalopathy secondary to hypoxemic respiratory failure, sepsis ruled out 4. New onset atrial fibrillation. 3. Diabetes mellitus type 2 with hyperglycemia secondary to steroids. 4. GERD 5. Anxiety generalized and recurrent depression 6. Chronic osteoarthritis pain to the bilateral knees 7. Chronic tobacco use. 8. Hypotension due to combination of verapamil and Lopressor requiring vasopressors. 9. Chronic kidney disease stage II Discharge plan: [facility] under the care of Dr. Raphael. Impression and plan of care have been directed as dictated by the signing physician. Rosalba Mooney nurse practitioner acting as scribe for signing physician. Patient Condition at Discharge: Good Plan - Discharge Summary New Discharge Prescriptions: ALPRAZolam [Xanax] 0.25 mg PO BID PRN #60 tab PRN Reason: Anxiety Doxycycline [Vibramycin] 100 mg PO Q12HR #14 capsule HYDROcodone/APAP 5-325MG [[place] 5-325] 1 each PO BID PRN #60 tab PRN Reason: Pain predniSONE 0 mg PO DIRECTED #40 tab Discharge Medication List Citalopram Hydrobromide [Citalopram HBr] 40 mg PO DAILY 06/19/16 [History] Esomeprazole Magnesium [NexIUM] 40 mg PO DAILY 06/19/16 [History] glipiZIDE [Glucotrol] 5 mg PO AC-BID 06/19/16 [History] ALPRAZolam [Xanax] 0.25 mg PO BID PRN #60 tab 06/26/16 [Rx] Albuterol Nebulized [Ventolin Nebulized] 2.5 mg INHALATION RT-QID PRN #0 nebu [Rx] Amiodarone [Cordarone] 200 mg PO BID tab 06/26/16 [Rx] Apixaban [Eliquis] 5 mg PO BID tab 06/26/16 [Rx] Budesonide [Pulmicort] 1 mg INHALATION RT-BID nebu 06/26/16 [Rx] Docusate [Colace] 100 mg PO BID cap 06/26/16 [Rx] Doxycycline [Vibramycin] 100 mg PO Q12HR #14 capsule 06/26/16 [Rx] Furosemide [Lasix] 40 mg PO BID@0900,1600 tab 06/26/16 [Rx] HYDROcodone/APAP 5-325MG [[place] 5-325] 1 each PO BID PRN #60 tab 06/26/16 [Rx] INSULIN LISPRO (humaLOG) [humaLOG (formulary)] 0 unit SQ AC-TID vial 06/26/16 [ Rx] Insulin NPH [humuLIN N] 10 unit SQ BID vial 06/26/16 [Rx] Metoprolol Tartrate [Lopressor] 25 mg PO BID tab 06/26/16 [Rx] Nicotine 21Mg/24Hr Patch [Habitrol] 1 patch TRANSDERM DAILY patch 06/26/16 [Rx] Sennosides [Senokot] 8.6 mg PO BID PRN #0 tab 06/26/16 [Rx] predniSONE 0 mg PO DIRECTED #40 tab 06/26/16 [Rx] rOPINIRole HCL [Requip] 0.5 mg PO HS tab 06/26/16 [Rx] Follow up Appointment(s)/Referral(s): [facility] [Provider Group] - 1 Week Bhaskar Raphael MD [Primary Care Provider] - 1-2 days Ivet Chen MD [STAFF PHYSICIAN] - 1 Week Discharge Disposition: TRANSFER TO SNF/ECF
[2016-06-26 12:52] VITALS: PULSE 112; RESP 18; TEMP 98
--- NOTE | 2016-06-26 13:56 | P.PN ---
Subjective Progress note dated 06/25/2016 71-year-old female who was admitted from the office a couple days back. She came with hypoxemic and hypercapnic respiratory failure, likely related to underlying CHF atrial fibrillation and RVR. The patient's chest x-ray today still shows evidence of bilateral heart failure. Significant cephalization bilateral effusions and interstitial engorgement. She also has a history of new -onset atrial fibrillation being addressed by cardiology as well as a history of severe underlying COPD. Additional history includes diabetes depression GERD and Narvaez's esophagus. She has a history of chronic tobacco use. Actually when she was in the office today, as she was can be wheeled over to the emergency room, she wanted to smoke on the way over. Today she is a bit confused. May relate to the underlying Xanax use. We'll look at her medications and discontinue or reduce doses of those which might be contributing to her poor mental status. Progress note dated 06/26/2016 71-year-old female with a history of hypoxemic and hypercapnic respiratory failure related to underlying CHF and atrial fibrillation with RVR. The patient 's chest x-ray has slowly improved. Clinically she is feeling much better. Her chest x-ray initially showed cephalization with interstitial edema. She also developed new onset atrial fibrillation. That was addressed by cardiology. In addition, she sees Dr. Nina and our office for her COPD. In addition to all of this, she has a history of diabetes depression GERD and Narvaez's esophagus. Continues to smoke though. Possible discharge in next 24 -48 hours to [facility]. Not sure. Still waiting for a bed. Objective - Vital Signs Vital signs: Vital Signs Temp 98.0 F 06/26/16 12:00 Pulse 122 H 06/26/16 12:00 Resp 18 06/26/16 12:00 BP 104/66 06/26/16 12:00 Pulse Ox 93 L 06/26/16 12:00 Intake & Output 06/25/16 06/26/16 06/26/16 18:59 06:59 18:59 Intake Total 700 290 100 Output Total 4400 810 Balance -3700 290 -710 Weight 84.6 kg 85.2 kg Intake: IV 450 290 Piperacillin-Tazobactam 3 50 50 .375 gm In Dextrose/Water 1 50ml.bag @ 12.5 mls/hr IVPB Q8HR WILLIAM Rx#: [id number] Sodium Chloride 0.9% 1, 400 240 000 ml @ 100 mls/hr IV . Q10H WILLIAM Rx#:[id number] Oral 250 100 Output: Urine 4400 810 Other: Voiding Method Indwelling Catheter Bedside Commode Bedside Commode # Voids 1 2 # Bowel Movements 1 1 - Exam No acute distress, oriented 3. HEENT examination is grossly unremarkable. Mucous membranes are moist. No oral lesions. Neck supple. Full range of motion. No adenopathy or thyromegaly. No distinct neck vein distention is noted. Cardiovascular examination reveals a regular rhythm rate. Heart rate about 100. S1-S2 normal. There is a grade 2/6 systolic murmur. No S3-S4. Lungs reveal bibasilar crackles. Breath sounds are diminished throughout. No rhonchi. No wheezes. Abdomen soft. Bowel sounds are heard. Extremities are intact. No cyanosis clubbing or edema. Neurologic examination is abnormal. She's very confused and disoriented. This is apparently new for her. This started yesterday according to her daughter. Skin examination is without lesion. - Labs CBC & Chem 7: 06/23/16 04:18 06/24/16 05:42 Labs: Abnormal Lab Results - Last 24 Hours (Table) 06/25/16 06/25/16 06/26/16 Range/Units 16:46 20:35 06:18 PT 12.3 H (9.0-12.0) sec POC Glucose (mg/dL) 66 L 153 H (75-99) mg/dL 06/26/16 06/26/16 Range/Units 06:22 07:17 PT (9.0-12.0) sec POC Glucose (mg/dL) 53 L 101 H (75-99) mg/dL Assessment and Plan (1) Acute pulmonary edema Status: Acute (2) Atrial fibrillation with RVR Status: Acute (3) COPD (chronic obstructive pulmonary disease) Status: Acute Plan: Plan dated 06/25/2016 The patient has been seen by the primary hospitalist. The planning on possible discharge to a nursing facility or rehab facility of some sore. She continues to be on appropriate medications. A bit confused. I review her medication list. We may discontinue some medications based maybe having an abnormal effect on her mental status. Additional recommendations suggestions forthcoming. Prognosis is very guarded. Plan dated 06/26/2016 Today I was in the room with the patient and the patient's family. She is not excited about going to [facility]. Her breathing has improved though. She seems to be much more comfortable. She stated she'll be at [facility] for 7-10 days. Other than that things are going about the same. She 6 angry that she will be a little to smoke cigarettes at [facility]. Anyway that's the plan for discharge to [facility]. That may happen today or within the next 24-48 hours. Time with Patient: Less than 30
--- NOTE | 2016-06-26 15:27 | P.PN ---
Subjective Principal diagnosis: Shortness of breath This is a 71-year-old female with history of diabetes, hypertension, COPD, chronic tobacco use, who presented to the hospital with symptoms of progressively worsening shortness of breath. Patient also is noted to be in atrial fibrillation, which is the reason cardiology consultation was requested. Patient was also initially quite hypotensive. Patient is currently on oral amiodarone, and metoprolol tartrate. Heart rate this morning 90s. Arrangements being made for patient to be transferred to [facility] rehab. Objective - Vital Signs Vital signs: Vital Signs Temp 98.0 F 06/26/16 12:00 Pulse 122 H 06/26/16 12:00 Resp 18 06/26/16 12:00 BP 104/66 06/26/16 12:00 Pulse Ox 93 L 06/26/16 12:00 Intake & Output 06/25/16 06/26/16 06/26/16 18:59 06:59 18:59 Intake Total 700 290 100 Output Total 4400 810 Balance -3700 290 -710 Weight 84.6 kg 85.2 kg Intake: IV 450 290 Piperacillin-Tazobactam 3 50 50 .375 gm In Dextrose/Water 1 50ml.bag @ 12.5 mls/hr IVPB Q8HR WILLIAM Rx#: [id number] Sodium Chloride 0.9% 1, 400 240 000 ml @ 100 mls/hr IV . Q10H WILLIAM Rx#:[id number] Oral 250 100 Output: Urine 4400 810 Other: Voiding Method Indwelling Catheter Bedside Commode Bedside Commode # Voids 1 2 # Bowel Movements 1 1 - Exam PHYSICAL EXAMINATION: HEENT: Head is atraumatic, normocephalic. Pupils equal, round. Neck is supple. There is no elevated jugular venous pressure. HEART EXAMINATION: Heart S1 and S2 irregularly irregular CHEST EXAMINATION: Lungs reveal expiratory wheezes ABDOMEN: Soft, nontender. Bowel sounds are heard. No organomegaly noted. EXTREMITIES: 2+ peripheral pulses with no evidence of peripheral edema and no calf tenderness noted. NEUROLOGIC patient is awake, alert and oriented -3. . - Labs CBC & Chem 7: 06/23/16 04:18 06/24/16 05:42 Labs: Abnormal Lab Results - Last 24 Hours (Table) 06/25/16 06/25/16 06/26/16 Range/Units 16:46 20:35 06:18 PT 12.3 H (9.0-12.0) sec POC Glucose (mg/dL) 66 L 153 H (75-99) mg/dL 06/26/16 06/26/16 Range/Units 06:22 07:17 PT (9.0-12.0) sec POC Glucose (mg/dL) 53 L 101 H (75-99) mg/dL Assessment and Plan (1) Acute respiratory failure with hypoxia Status: Acute (2) Diastolic congestive heart failure Status: Acute (3) Hypertension Status: Acute (4) Atrial fibrillation, chronic Status: Acute (5) COPD exacerbation Status: Acute (6) Nicotine dependence Status: Acute Plan: From cardiology's perspective, we'll continue the patient's current medications. Follow-up appointment will be made in the office 2 weeks post discharge. DNP note has been reviewed, I agree with a documented findings and plan of care. Patient was seen and examined.
== END 2016-06-26 16:03 | DRG 291 ==
LOC: EC 11:18 → 6SEL 14:36 → 6ICU 17:57 → 6SEL 06-24 01:50
PROVIDERS: ADMIT Family Medicine; ATTEND Family Medicine
DX: I13.0 Hypertensive heart and chronic kidney disease with heart failure and stage 1 through stage 4 chronic kidney disease, or unspecified chronic kidney disease (principal); G93.41 Metabolic encephalopathy; I95.9 Hypotension, unspecified; J96.01 Acute respiratory failure with hypoxia; J96.02 Acute respiratory failure with hypercapnia; E11.22 Type 2 diabetes mellitus with diabetic chronic kidney disease; I31.3 Pericardial effusion (noninflammatory); E11.65 Type 2 diabetes mellitus with hyperglycemia; I27.2 Other secondary pulmonary hypertension; I50.31 Acute diastolic (congestive) heart failure; F33.9 Major depressive disorder, recurrent, unspecified; J44.1 Chronic obstructive pulmonary disease with (acute) exacerbation; I48.2 Chronic atrial fibrillation; G25.81 Restless legs syndrome; F17.210 Nicotine dependence, cigarettes, uncomplicated; F41.1 Generalized anxiety disorder; G89.29 Other chronic pain; I08.3 Combined rheumatic disorders of mitral, aortic and tricuspid valves; I25.10 Atherosclerotic heart disease of native coronary artery without angina pectoris; K21.9 Gastro-esophageal reflux disease without esophagitis; K22.70 Barrett's esophagus without dysplasia; M19.90 Unspecified osteoarthritis, unspecified site; M81.0 Age-related osteoporosis without current pathological fracture; N18.2 Chronic kidney disease, stage 2 (mild); T38.0X5A Adverse effect of glucocorticoids and synthetic analogues, initial encounter; Z79.01 Long term (current) use of anticoagulants; Z79.4 Long term (current) use of insulin; Z79.84 Long term (current) use of oral hypoglycemic drugs; Z79.899 Other long term (current) drug therapy; Z96.653 Presence of artificial knee joint, bilateral
CPT/HCPCS: 36415; 51702; 71010; 71020; 71275; 80048; 80053; 81003; 82272; 82550; 82553; 83036; 83735; 83880; 84100; 84132; 84439; 84443; 84484; 85025; 85027; 85379; 85610; 85730; 87040; 87086; 93005; 93306; 94640; 94660; 96365; 96366; 96367; 96375; 96376; 99214; 99291